=== PATIENT | female | born 1990 | race Caucasian/White ===

== ENCOUNTER 2018-09-27 09:00 | Outpatient (RCR) | payer MEDICAID, SELFPAY ==
--- NOTE | 2018-09-27 11:10 | BH.SGPN.GN ---
Behaviors/Verbalizations/Mental Status: [Client alert and oriented, casually dressed and groomed. Eye contact good. Motor activity appropriate. Speech within normal limits. Affect congruent, mood dysthymic. Thoughts linear, logical, no signs of hallucinations or delusions. ] Client Response/Progress/Benefit: [Client responded well to session, mostly attentive and somewhat engaged during small group session, though struggling with focus throughout. Group discussed the mental health benefits of recognizing strengths which included; improved self-esteem, better relationships, and being able to better problem solve, as well as willingness to ask for help. Group identified the barriers that have prevented them from acknowledging their strengths and successes. These barriers included; negative thoughts, feeling like a burden, negative outlook, lack of awareness of strengths. Group identified strategies to overcome barriers that prevent them from seeing strengths. These strategies included; keeping track of progress, practicing using affirmations, and reaching out to supports to challenge perspective when needed. Client able to identify personal strengths she possesses which included; intelligence, creativity, being a good listener, and caring for others. Appeared to benefit from recognizing personal strengths and identifying strategies to overcome barriers. Will continue IOP tx to improve mood stability, further increase healthy coping skills, and prevent decompensation. ] Narrative Note: []
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
--- NOTE | 2018-09-29 09:00 | BH.SGPN.GN ---
Behaviors/Verbalizations/Mental Status: []Client alert and oriented, disheveled appearance. Eye contact fair. Motor activity slowed. Speech within normal limits. Affect flat, mood dysthymic . Thoughts linear, logical, no signs of hallucinations or delusions. Reviewed client?s symptom tracker. Reports 1/5 for thoughts of suicide and 0/5 for risk, plan, or intent as of 09/29/18. Therapist checked in with client and client reports this is her baseline and denies any active suicidal ideations. Client Response/Progress/Benefit: []Client responded somewhat well to session, withdrawn while peers shared, but willing to share during her check-in. Client reports feeling ?not fully alert? today. Client stated she continues to feel in a ?todd area? or ?funk? which client describes as ?there but not really there.?? Client reported she has been avoiding things including her outpatient counseling appointment yesterday and class. Client reports feeling tired and lacks motivation to follow through with things that may help her mental health. Client received supportive feedback from peers. Client reported that she does not have ?a lot of wins? today, but client recognized that making it to IOP today was a positive. Appeared to benefit from socializing today instead of isolating at home. Limited progress to document as client continues to report daily symptoms that impact functioning.?
--- NOTE | 2018-09-29 10:04 | BH.SGPN.GN ---
Behaviors/Verbalizations/Mental Status: [Client alert and oriented, casually dressed and appropriately groomed. Eye contact good. Motor activity appropriate. Speech within normal limits. Affect congruent, mood dysthymic. Thoughts linear, logical, no signs of hallucinations or delusions. ] Client Response/Progress/Benefit: [Client was an active participant in group activity and provided some input to discussion when prompted. He connected with the topic of obstacles and solutions and worked with group to identify common internal and external barriers that could prevent progress towards desired reality. Client discussed with the group impact of focusing on external barriers and not addressing internal can continue to reinforce unhealthy coping and further prevent progress. Able to identify her own internal barriers preventing pt from reaching desired reality which included: not wanting to feel like a burden, minimizing mental health sx, isolation, and denial. Benefited from group as client was able to identify impact of internal barriers on current mental health state and ability to make progress. Will continue IOP to prevent decompensation and improve self-esteem, as well as improve mood stability.] Narrative Note: []
--- NOTE | 2018-09-30 09:06 | BH.SGPN.GN ---
Behaviors/Verbalizations/Mental Status: []Client alert and oriented, casually dressed and groomed. Eye contact fair. Motor activity appropriate. Speech within normal limits. Affect flat, mood anxious. Thoughts linear, logical, no signs of hallucinations or delusions. Reviewed client?s symptom tracker. Client has 1/5 for thoughts of suicide and 0/5 for plan and intent as of 09/30/18. Client to meet with individual therapist today. Will further assess suicidality. Client Response/Progress/Benefit: []Client responded somewhat well to session, coloring and appearing distracted, but sharing during her check-in time. Client reports feeling ?stressed? today due to ongoing feelings of ?being in a todd fog.? Client shared she did not go to her counseling appointment yesterday because she was too tired. Client reported she is supposed to work today, but she feels anxious about going. Client able to recognize coping skills that could help her get through work such as deep breathing and reminding herself that ?it won?t be that bad, I?m just cleaning.? Client?s mental health win today was that she made it to group today as client wanted to stay home and isolate. Appeared to benefit from connecting with peers instead of isolating which could reinforce depression. Limited progress at this time as client reports lack of motivation and application of coping skills. Will continue tx to prevent further decompensation and increase us of healthy coping skills.
--- NOTE | 2018-09-30 10:15 | BH.SGPN.GN ---
Behaviors/Verbalizations/Mental Status: []Client alert and oriented, neatly dressed and groomed. Eye contact fair. Motor activity appropriate. Speech within normal limits. Affect flat, mood dysthymic. Thoughts linear, logical, no signs of hallucinations or delusions. Client Response/Progress/Benefit: []Client responded well to session, mostly a passive participant, but providing occasional input. Client indicated connecting with the topic of cognitive distortions. Client agreed with group that negative thoughts impact one?s emotions, behaviors, and increase mental health symptoms. Client reported distortions can cause guilt and make depression worse. Client did well to work with the group on defining the various types of cognitive distortions and their impact on mental health. Client reported connecting with distortions of mental filtering, disqualifying the positives, over-generalizing, and ?shoulds and musts.? Client reported ?I will filter out all the positives and only hear the bad things.? Appeared to benefit from increasing awareness of cognitive distortions and how they can impact emotions and behaviors. Client continues to struggle with depressive symptoms that impact her daily functioning. Will continue IOP to prevent decompensation, maintain safety, and promote application of healthy coping skills.
--- NOTE | 2018-09-30 14:57 | BH.MDN_ITS ---
Multi-Disciplinary Note - Note 60-min Individual Time Started:: 11:40 Date: 09/30/18 Purpose of session/treatment goals addressed:: The purpose of this session was to build rapport, address current symptoms and stressors, and assess for risk. Another goal was to use strengths perspective and complete a safety plan. Eye Contact:: Fair Motor Activity:: Slowed Appearance:: Neat Speech:: Other - slow Mood:: Anxious, Dysthymic Affect:: Flat, Other - tearful Thoughts:: Linear, Logical, No evidence of hallucinations/delusions noted Staff Interventions:: Therapist used active listening and open-ended questions to gather information on client's current stressors, symptoms, and triggers. Therapist used strengths perspective to reinforce resilience and help client identify positive coping skills and supports. Therapist gently challenged distorted thoughts. Therapist used a safety plan worksheet and helped client complete it. Therapist assessed for risk and client contracted for safety. Therapist offered a family session, which client declined at this time. Therapist encouraged client to reach out to her friend this weekend. Client Response:: Client responded well to session, open to meeting with therapist. Client was tearful throughout and shared she has been feeling physically and mentally exhausted. Client acknowledges that her recent overdose is a contributor to her fatigue as her body is still getting rid of the Prozac. Client shared she often feels like no one cares and recognizes that most of her thoughts right now are distorted. Client reports belief her parents are tired of dealing with her mental health and shared her friends no longer want to spend time around her. Client identified one friend from [place], who client continues to be close with. Client somewhat receptive to gentle thought chall enging. Client shared some of what brought her to IOP included major stressors with her biological family, school, adoptive family, and transitioning to life in [place]. Client receptive to creating a safety plan. Client's safety plan included warning signs such as shutting down, anger, mean mouthed, and not caring. Client's coping skills included coloring, going outside, deep breathing, and reaching out to her best friend. After thought challenging from therapist, client reported willingness to reach out to her friend today. Client has to work tonight which is an additional stressor. Client encouraged to communicate with her bosses and parents about her mental health and support needs. Risks/Concerns:: Client denies any current active suicidal ideations or plan, bu t reports passive suicidal ideations which she described as popup adds. Client reports these thoughts are controllable and she has no intent to act on these thoughts as of 09/30/18. Client reports I want to live, it wasn't my time to go. Client's home is safe and per client's report her parents are keeping her medications. Client reports ability to maintain safety and was willing to go to the ER should she feel worse. Resources provided for crisis hotlines and completed safety plan with therapist. Progress Toward Goals/Plan:: Client's first week in IOP, no progress to document at this time. Client shared she continues to feel in a todd area, fatigued, and depressed. Client continues to experience the physiological effects of her recent overdose which is exacerbating her fatigue and inability to concentrate. Client endorses passive suicidal ideations, hopelessness, crying spells, negative thoughts, anhedonia, and anxiety. Therapist encouraged a family sessi on, which client declined at this time. Client will continue IOP to prevent further decompensation, maintain safety, and improve mood stability. Client willing to follow her safety plan and reports ability to maintain safety. Time Stopped:: 12:35
--- NOTE | 2018-10-04 11:17 | BH.SGPN.GN ---
Behaviors/Verbalizations/Mental Status: []Client alert and oriented, neatly dressed and groomed. Eye contact fair. Motor activity appropriate. Speech within normal limits. Affect congruent, mood euthymic. Thoughts linear, logical, no signs of hallucinations or delusions. Client Response/Progress/Benefit: []Client responded well to session, contributing to discussion. Client appeared to connect with the activity from second group and helped the group identify benefits of having a strong foundation of internal and external coping skills. Client helped the group discuss the different categories of coping skills and provided examples. Client shared because her parents are therapists, she knows a lot of coping skills. However, client reported it is hard for her to apply thought challenging. Client created a coping skills ?menu? for the five categories of coping skills. Client selected petting her dog, listening to music, organizing, deep breathing, face masks, and looking at the evidence against her thoughts as her coping skills to try. Client appeared to benefit from increasing her repertoire of healthy coping skills. Client?s second week in IOP and her affect has improved since last week. Will continue tx to prevent decompensation, maintain safety, and improve daily functioning.
--- NOTE | 2018-10-04 14:09 | BH.MDN ---
Multi-Disciplinary Note - Note 45-min Individual Time Started:: 09:13 Date: 10/04/18 Purpose of session/treatment goals addressed:: The purpose of this session was to gather information on client's current stressors, symptoms, and treatment goals. Another goal was to build rapport and schedule a family session. Eye Contact:: Good Motor Activity:: Appropriate Appearance:: Neat Speech:: Appropriate Mood:: Euthymic Affect:: Congruent - smiling and laughing throughout session. Thoughts:: Linear, Logical, No evidence of hallucinations/delusions noted Staff Interventions:: Therapist used active listening and open-ended questions to explore client's current stressors, symptoms, and treatment goals. Therapist used strengths perspective to build rapport and help client identify personal resilience factors. Therapist assessed risk and client contracted for safety. Therapist helped client establish a date for a family session. Client Response:: Client responded well to session, open to meeting with therapist. Client shared she feels more like herself this week. Client stated she was able to get some sleep over the weekend which was helpful. Client also talked with her boss at [employer] and shared the conversation went well. Client reported it made me realize that people do actually care about me being here. Client willing to have a family session and tentatively scheduled one for next week. Client reported her goals for the family session is to feel heard and improve communication with her parents about independence. Client provided psychosocial information to therapist and identified her treatment goals. Client's goals included improving her functioning, so she can finish this semester, move out on her own, and obtain a full-time job. Client would also like to improve emotional regulation, increase healthy supports, and challenge negative thoughts. Client able to acknowledge use of distortions and identified herself as being emotionally spongey which can cause client to have difficulty regulating emotions and lead to impulsive decisions. Client receptive to reaching out to her friend [place] and following up with her parents about the family session. Risks/Concerns:: Client reports passive thoughts of that are chronic. Client denies any active suicidal ideations, plan, or intent as of 10/04/18. Client reports I'm starting to feel like myself again. Future oriented and reporting feeling closer with supports. Client reports ability to maintain safety today. Progress Toward Goals/Plan:: Client?s second week in [facility], progress reported in improved mood this week. Client shared she feels ?more like I?m getting back to myself.? Client reports an improved outlook and shared belief that ?people really do care about me.? Client was future oriented throughout session and receptive to having a family session which demonstrates progress. Client continues to endorse passive suicidal ideations, irritability, fatigue, negative thoughts, anhedonia, isolation, and anxiety about the future. Client will continue IOP to prevent decompensation, maintain safety, and improve mood stability. Time Stopped:: 10:03
--- NOTE | 2018-10-04 14:10 | BH.MTP_ITS ---
[facility] Treatment Plan - Patient Information Program Physician:: Che Marquez Primary Therapist:: Adelita Medley - Psychiatric Diagnoses Psychiatric Diagnoses:: Major depressive disorder recurrent severe without psychosis, generalized anxiety disorder, posttraumatic stress disorder Diagnosis Code(s):: F 33.2 - Estimated LOS Estimated LOS (in weeks):: 6 Problem/Goal #1 - Problem/Goal #1 Stated Goal:: Client will reduce depressive symptoms, suicidal thoughts, and lack of motivation due major depressive disorder. Description of Barriers: Client reports history of trauma that continues to impact client. Client reports crisis behaviors including shutting down, wanting to run, suicidal ideations, and avoidance which causes additional issues for client. Client reports a good relationship with her adoptive parents, but she shared feeling like I'm walking on eggshells right now. Client reports her youngest adoptive brother is a trigger for her. Client identifies current stressors including; financial stress, trying to figure out her career, lack of social support, moving back to [place], and family stress. Client reports awareness of warning signs, triggers, and healthy coping skills, but per her report, she chooses not to ignore these at times. Client endorses numerous distorted thoughts that reinforce mental health symptoms and cause interpersonal relationship issues. Functional Impact: Client is a 27-year-old female with a history of depression, PTSD, and anxiety. Client was referred to [facility] by a family member following a recent suicide attempt on 09/22/18. Client ingested 1-1/2 bottles of her prescription pills on a family vacation in [place] and was hospitalized. Client reported multiple triggers to her suicide attempt including issues with her adoptive brother and reminders of past family trauma. Client was adopted and reported her biological parents reconnected a couple of months ago. Client currently endorses a depressed mood, lack of energy, lack of concentration, passive wishes of , lack of motivation, avoidance behaviors, emotional dysregulation, irritability and erratic sleep and appetite. Client reports being unable to function at school and shared she is currently failing her classes. Client's symptoms are interfering with her social, occupation, and familial functioning. Goal Relevant Strengths/Supports: Client presents as a kind, intelligent, and resilient woman who has overcome numerous hardships in life. Client has shown ability to bounce back from adversity in the past which presents as a protective factor to her current treatment. Client has strong family support from her adoptive parents. Client has a good friend from [place] who often reaches out and checks in with client. 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 Client has been in IOP treatment before and reported it was helpful. Client has good insight to her warning signs, triggers, and has knowledge of coping skills. - Objectives Objective #1 Stated Objective: Client will identify and replace 2-3 negative thinking patterns that reinforce isolation, suicidal ideation, and negative self-talk. Interventions: Through groups and individual therapy, client will be provided with education on cognitive distortions, mistaken beliefs, and identifying and combating negative self-talk. Therapist will assist client in recognizing triggers for increased suicidal and depressive thought patterns. Therapist will help client explore connection between thoughts, feelings, and actions and help client reframe depressive thought patterns. Therapist will help client gain awareness of why client has developed negative thoughts and core beliefs of self. Discharge Criteria: Client will have accomplished this goal when client can identify and replace at least 2 negative thinking patterns with more realistic, positive statements. Target Date: 11/08/18 Review Date: 10/27/18 Status: open Objective #2 Stated Objective: Client will learn and utilize 2-3 healthy coping strategies to better manage depressive and mood symptoms as shown by reduced DSM-5 scores. Interventions: Through group and individual sessions, therapist will help client identify triggers and warning signs of depression and emotional dysregulation including emotional, physical, and behavioral changes. Therapist will teach client various coping skills to manage her symptoms and give client tangible resources to use to regulate emotions. Therapist will use cognitive restructuring techniques and help client gain awareness of negative thoughts that reinforce depressive cycles. Therapist will help client incorporate behavioral activation, opposite action, motivational interviewing, and assist client in setting SMART goals. Discharge Criteria: Client will have met this goal when she can report learning and using at least 2 coping skills to manage depressive symptoms and show a reduction in DSM-5 symptoms. Target Date: 11/08/18 Review Date: 10/27/18 Status: open Problem/Goal #2 - Problem/Goal #2 Stated Goal:: Client will increase emotional regulation and to better manage anxiety and trauma triggers. Description of Barriers: Client reports history of trauma that continues to impact client. Client reports crisis behaviors including shutting down, wanting to run, suicidal ideations, and avoidance which causes additional issues for client. Client reports a good relationship with her adoptive parents, but she shared feeling like I'm walking on eggshells right now. Client reports her youngest adoptive brother is a trigger for her. Client identifies current stressors including; financial stress, trying to figure out her career, lack of social support, moving back to [place], and family stress. Client reports awareness of warning signs, triggers, and healthy coping skills, but per her report, she chooses not to ignore these at times. Client endorses numerous distorted thoughts that reinforce mental health symptoms and cause interpersonal relationship issues. Functional Impact: Client is a 27-year-old female with a history of depression, PTSD, and anxiety. Client was referred to [facility] by a family member following a recent suicide attempt on 09/22/18. Client ingested 1-1/2 bottles of her prescription pills on a family vacation in [place] and was hospitalized. Client reported multiple triggers to her suicide attempt including issues with her adoptive brother and reminders of past family trauma. Client was adopted and reported her biological parents reconnected a couple of months ago. Client currently endorses a depressed mood, lack of energy, lack of concentration, passive wishes of , lack of motivation, avoidance behaviors, emotional dysregulation, irritability and erratic sleep and appetite. Client reports being unable to function at school and shared she is currently failing her classes. Client's symptoms are interfering with her social, occupation, and familial functioning. Goal Relevant Strengths/Supports: Client presents as a kind, intelligent, and resilient woman who has overcome numerous hardships in life. Client has shown ability to bounce back from adversity in the past which presents as a protective factor to her current treatment. Client has strong family support from her adoptive parents. Client has a good friend from [place] who often reaches out and checks in with client. 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 Client has been in [facility] treatment before and reported it was helpful. Client has good insight to her warning signs, triggers, and has knowledge of coping skills. - Objectives Objective #1 Stated Objective: Client will be able to explain common stress reactions and symptoms related to trauma and learn 2-3 coping skills to manage symptoms. Interventions: Therapist will provide education on trauma and explain impact trauma can have on development and emotional regulation. Will help client explore personal symptoms and warning signs of stress and trauma as well as her crisis behaviors. Therapist will teach client coping skills to improve emotional regulation, mindfulness, and distress tolerance. Therapist will help client get connected with additional trauma-focused services, should client agree. Therapist will incorporate client's supports into the treatment process to help gain awareness of crisis behaviors and set goals. Discharge Criteria: Client will have met this objective when can identify common stress reactions to trauma and report using at least 2 healthy coping skills to manage symptoms. Target Date: 11/08/18 Review Date: 10/27/18 Status: open Objective #2 Stated Objective: Client will identify 2-3 anxiety and emotional dysregulation triggers and 2 healthy coping skills to manage symptoms as shown by decreased DSM-5 cross-cutting score for anxiety. Interventions: Therapist will help client increase awareness of anxiety and emotional dysregulation triggers and educate client on ways emotions impact overall health. Therapist will teach client various heathy coping skills to manage triggers and prevent further escalation of symptoms. Therapist will assist client in identifying warning signs, triggers, and maladaptive coping skills. Therapist will utilize opposite action and other DBT techniques to promote emotional regulation. Therapist will discuss the benefit of self-care and self-compassion. Discharge Criteria: Client will have accomplished this goal when can report at least 2 triggers for anxiety and state using 2 healthy strategies to manage symptoms. Additionally, client will have accomplished this goal when her DSM-5 cross-cutting scores show a decrease in anxiety. Target Date: 11/08/18 Review Date: 10/27/18 Status: open
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
--- NOTE | 2018-10-06 09:17 | BH.COMM ---
Communication Note - Communication with Client Communication Note: Therapist called client as client no called/no showed for her scheduled IOP sessions today. Client answered and shared she meant to call, but she forgot. Client cancelled today stating I decided to spend the day with my family. Client reports plan to attend IOP tomorrow 10/07/18.
--- NOTE | 2018-10-07 09:51 | BH.NA_ITS ---
Physical Data - Vital Signs Pulse Rate: 84 Respiratory Rate: 14 Blood Pressure: 106/70 - Height/Weight Height: 1.66 m Weight:: 74.843 kg Weight in Pounds: 165.0 lbs Current Medication Compliance - Medication Compliance Do you take your medication as prescribed?: Yes Do you need assistance with taking medication?: No Have you had side effects from medication?: No Nutritional History - Appetite Nutritional Instructions:: If client shows signs of a swallowing problem, weight change of 10 pounds or more in the last month, or is on a diabetic diet, the physician will review and request a dietitian consult, as appropriate. All unintentional weight loss will be referred to the physician for decision on need for dietitian consult. Describe your appetite:: Fair Have you noticed a change in your eating habits lately?: No Functional Assessment - Sleep Pattern Describe any problems with sleeping: Client notes intermittent difficulty with falling and staying asleep, which she relates more to comfort then rumination or anxiety. - Activities Motor Activity:: Functional, Hyperactivity Comments:: constant R leg bouncing throughout interview Sensory/Communication Assess - Dental Problems Do you have any dental problems?: None - Vision Problems Do you have any vision problems?: None - Hearing Problems Do you have any hearing problems?: Adequate - Communication Problems Do you have difficulty understanding what people are saying?: No Do you have trouble putting your thoughts into words or expressing what you want to say?: No Do people ever have trouble understanding what you say?: No What is your primary language?: Malay Learning Assessment - Education What is your level of education?: Some College - Learning Barriers Learning Barriers:: Ready to learn Medical Problems/History - Pain Assessment Do you have acute or chronic pain?: No - Female Reproductive Do you think you may be ?: No Number of pregnancies:: 0 Number of children:: 0 Have you reached menopause?: No Do you have any history of breast disease?: No Surgical History - Surgical History Have you had any surgeries? If so, list type and date:: No Substance Abuse - Substance Abuse Please describe substance abuse in the last 30 days:: Client denies ETOH, tobacco, and illicit substance use in the past month. Mental Status Summary - Mental Status Significant Findings/Observations on Appearance and Mood:: Doris is A&Ox4, cooperative with interview, hyperactive in chair with leg bouncing. Good eye contact. Steady gait. Speech is clear and of normal rate and volume. Moderate anhedonia. Mood congruent affect. Normal process. No symptoms of delusions. Notes that she has had visual and auditory hallucinations before, but denies any currently. She denies SI and HI at present; however, she does note that it only takes only little thing to set me of and make me feel suicidal. Suicide Assessment - Suicidal Ideation Are you currently or have you been suicidal in the past?: Yes Suicidal Intentional Rating Scale (SIRS): Suicidal thoughts (past) Physician Notification: If Active suicidal thoughts/Will not contract for safety is checked, contact physician and document in the Physician Notification section below. Assault History/Potential - History of Assault Do you have a history of assaulting someone?: No Physician Notification: If yes, notify physician and document notification date and time below. Past Psychiatric History - MH Treatment Hx ECT Therapy Details:: N/A Fall Risk Assessment - Age Age: Less than 60 - Mental Status Mental Status: Willing & able to ask for assistance when needed - Physical Status Physical Status: No problems - Impairments Impairments: None - Elimination Elimination: Continent AND independent - Gait or Balance Gait or Balance: Walks independently - Hx of Falls History of falls in the past 6 months: No known history - Medications/Substances Medications/substances used within the past 24 hours or ordered to administer: None of the medications/substances list above - Total Score Total Points:: 0 Physician Notification - Physician Notification Physician Notified: Che Marquez Method of Notification: Face to Face Comments: treatment planning discussion RN Summary of Impressions - Impressions Recommendations: Include psychiatric and medical issues, treatment planning recommendations, and discharge planning needs. Impressions: Psychiatric Issues: MDD, ASHLEY, PTSD Impression: Medical Issues: N/A Impression: General Medical Conditions: N/A - Level of Care How do the client's current symptoms and functional deficits support need for this level of care?: Client describes a significant decompensation in her mental health for several months, which culminated in her overdosing on Prozac. Client was in an inpatient psychiatric facility in [place] following the overdose from 09/22-09/24. Minnie endorses several recent stressors including a recent move from [place] to [place] and reconnecting with biological parents. Client notes that she has a younger brother that is on the autism spectrum and his behaviors are a trigger for her. She endorses intermittent SI without plan or intent, isolative behaviors, and hopelessness.
--- NOTE | 2018-10-07 10:08 | BH.SGPN.GN ---
Behaviors/Verbalizations/Mental Status: [Pt alert and oriented, casual dress, hygiene tended to. Eye contact good. Motor activity appropriate. Speech within normal limits. Affect congruent, mood depressed. Thoughts linear, logical, no signs of hallucinations or delusions.] Client Response/Progress/Benefit: [Pt receptive to session, provided input and remained an active listener throughout discussion on stress. Indicated connecting with discussion on how small stressors can lead to burnout if ignored. Able to brainstorm with the group positive and negative aspects of stress on physical and mental health. Pt participated in identifying current stressors impacting mental health. Pt's current stressors include: relationships, occupation, mental health, finances, loneliness, and living environment. Appeared to benefit from gaining awareness of own current stressors and learning about the impact stress has on overall wellbeing. Progress noted in improved ability to identify impact of not managing stressors is impacting mental health and wellbeing. Recommended continued IOP tx to increase utilization of healthy coping skills, improve mood stability, and prevent decompensation.] Narrative Note: []
--- NOTE | 2018-10-07 11:08 | BH.SGPN.GN ---
Behaviors/Verbalizations/Mental Status: []Client alert and oriented, neatly dressed and groomed. Eye contact good. Motor activity appropriate. Speech within normal limits. Affect full, mood euthymic. Thoughts linear, logical, no signs of hallucinations or delusions. Client Response/Progress/Benefit: []Client responded well to session, providing to discussion and participating in activity. Client further processed her stress jar shared that when she does not manage stress she gets ?mean mouthed,? apathetic, and shuts down. Client agreed with peers that it is helpful to focus on stressors in one?s control to reduce stress and anxiety. Client participated in the group activity. The group quickly became frustrated and client recognized the group often turned to giving up or quick fixes when things got difficult. The group was able to connect this to how they typically respond to stress in their daily lives. Client identified strategies from the activity that helped the group successfully manage stress such as; slowing down, trying new ideas, using their resources, being persistent, and focusing on one thing at a time. Client helped the group discuss the four A?s of stress management. Client reported she wants to work on altering her response to stress by challenging negative thoughts. Will continue tx to promote safety, increase emotional regulation, and prevent decompensation.
[2018-10-07 15:06] VITALS: BP 106/70; PULSE 84; RESP 14
--- NOTE | 2018-10-11 09:10 | BH.SGPN.GN ---
Behaviors/Verbalizations/Mental Status: [] Eye contact is poor. Motor activity is appropriate. Appearance is causal. Speech is Appropriate. Mood is depressed/irritable. Affect is flat. Thoughts are linear and logical. No evidence of psychosis. Reviewed daily check in sheet and no reports of suicidal ideations or intent. Client Response/Progress/Benefit: [] Pt was coloring in her binder for entire group session. Looking down. Only spoke when prompted. Appeared angry. Stated that she learned that she officially failed her college courses, however she expected this. Was very focused on moving out of [place] to [place]. Reported that she wants to get several jobs and plans to move in February. Positives reported were that her father and little brother were out of town. Also notes that she has found a support group for adopted individuals which she believes will be beneficial. Talked about fear of failure and some perfectionistic qualities stating she gets upset if everything doesn't go according to plan which may be why she is currently stressed about her life. Group provided feedback to challenge this thought. Limited progress noted. Benefited from group support, feedback, and encouragement. Will continue in [facility] to maintain safety, prevent decompensation, and improve daily functioning. Narrative Note: []
--- NOTE | 2018-10-11 10:10 | BH.SGPN.GN ---
Behaviors/Verbalizations/Mental Status: []Client alert and oriented, neatly dressed and groomed. Eye contact fair. Motor activity appropriate. Speech within normal limits. Affect congruent, mood irritable. Thoughts linear, logical, no signs of hallucinations or delusions. Client Response/Progress/Benefit: []Client responded mostly well to session, coloring throughout, but contributing at times. Client connected with the quote and agreed that mental health growth does not just happen by chance. Client shared the positive and negative forces in life could be many things including people. Client, along with other group members, provided input and suggestions when identifying what internal/external forces are and the impact that these forces have on their mental health. Examples of negative forces included; high expectations, negative thoughts, self-doubt, unmanaged mental health symptoms, and lack of motivation. Client identified reaching out to supports, using coping skills, taking medication, and self-care as positive forces. The group started, but they did not finish the activity. Benefited from increased awareness of how different positive and negative forces impact mental health. Progress shown as client did not report suicidal thoughts today. Client continues to struggle with negative thinking that reinforces depression and low self-esteem. Will continue tx to prevent decompensation, maintain safety, and improve emotional regulation.
--- NOTE | 2018-10-11 14:06 | BH.MDN_ITS ---
Multi-Disciplinary Note - Note 60-min Individual Time Started:: 11:26 Date: 10/11/18 Purpose of session/treatment goals addressed:: The purpose of this session was to address current symptoms, stressors, triggers, and negative thoughts. Other topics included radical acceptance and thought challenging. Eye Contact:: Fair Motor Activity:: Appropriate Appearance:: Neat Speech:: Soft Mood:: Dysthymic Affect:: Flat - tearful Thoughts:: Linear, Logical, No evidence of hallucinations/delusions noted Staff Interventions:: Therapist used active listening and open-ended questions to explore client's symptoms, triggers, and stressors. Therapist used cognitive restructuring techniques to help client catch and challenge distortions that reinforce depression. Therapist used dialectical statements to help client see different perspectives and challenge negative self-talk. Therapist introduced radical acceptance and provided psychoeducation. Therapist gave client homework to challenge two negative thoughts a day. Client Response:: Client entered session alert and oriented, but quickly became tearful. Client shared belief that she has been pretending for the last two weeks and she has been feeling depressed. Client continues to report interpersonal relationship issues with her family. Client willing to have a family session this Wednesday. Client was using self-depreciating and distorted thinking during session sharing ?I?m not going to be able to move to [place]? and ?my family thinks it?s unrealistic.? Receptive to therapist's gentle challenging. Client recognizes that her negative thinking reinforces depression and interpersonal relationship issues. Client stated she often perceives her mother's facial expressions as negative towards client. Client and therapist discussed radical acceptance. Client admits that she struggles with changing her perspective and taking action on her goals. As a result, client reported I've stayed miserable more times than I like to admit. Client somewhat receptive to dialectical thinking and was able to see the costs of not challenging her thinking. Client receptive to doing thought challenging for homework. Risks/Concerns:: Client denied any active suicidal ideations, plan, or intent as of 10/11/18. Client reported having passive suicidal thoughts earlier today, but client denies any now. Client reports ability to maintain safety and was future oriented. Progress Toward Goals/Plan:: Client appeared to be making strides towards treatment goals as shown by her improved affect and reduced suicidal ideations. However, during session client reported a regression in depressive symptoms. Client shared I feel like I've just been pretending. Client stated she has been trying to avoid her dark time feelings, but client recognizes this only intensifies her symptoms. Client reports she knows coping skills, but she states she has not been using them. Will continue IOP to prevent further decompensation and improve use of healthy coping skills. Time Stopped:: 13:20
--- NOTE | 2018-10-13 09:10 | BH.SGPN.GN ---
Behaviors/Verbalizations/Mental Status: [] Eye contact is poor. Motor activity is appropriate. Appearance is neat. Speech is Appropriate. Mood is depressed/irritable. Affect is angry. Thoughts are linear and logical. No evidence of psychosis. Reviewed daily check in sheet and patient reported 2/5 for suicidal ideations and 0/5 for intent. This has been baseline for patient since starting IOP. Was utilizing adult coloring sheet throughout the group which is normal for patient. Client Response/Progress/Benefit: [] Pt participated at times during the group session often responding to choices questions that were asked and interacting with peers. She declined to check in however group asked her some questions and she was able to verbalize some anger towards her current financial situation. States that she is upset about the financial costs to be independent today. She verbalized to peers that she has applied for a 3rd job and answered others questions. Irritable and angry however socializing with peers. 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 Group was empathetic and encouraging. Continues to have future plans to move to [place] however is very impatient. No progress noted. Benefited from group support and encouragement. Will continue in IOP to prevent decompensation and stabilize mood. Narrative Note: []
--- NOTE | 2018-10-13 10:26 | BH.COMM ---
Communication Note - Communication with Client Communication Note: Client left after first group today and appeared agitated. [facility] staff attempted to meet with client, but client left too quickly. This therapist called client and checked in with client over the phone. Per client's report, client was feeling suffocated in group and shared it was making her feel more stressed. Client reported belief that leaving group and doing something productive about her stress would be more beneficial. Therapist assessed for safety as client had indicated suicidal ideations on her daily symptom tracker. Client denied any active suicidal ideations, plan, or intent as of 10/13/18. Client reported ability to maintain safety and stated she plans to be at [facility] tomorrow for group and family sessions. ROSEMARIE signed with mother, this therapist called mother to keep family aware of progress and current situation.
--- NOTE | 2018-10-14 09:04 | BH.SGPN.GN ---
Behaviors/Verbalizations/Mental Status: []Client alert and oriented, neatly dressed and groomed. Eye contact fair-coloring most of group. Motor activity appropriate. Speech within normal limits. Affect constricted, mood anxious. Thoughts linear, logical, no signs of hallucinations or delusions. Reviewed client?s symptom tracker, no risk for suicidal ideation, plan, or intent as of 10/14/18. Client Response/Progress/Benefit: []Client entered session alert and oriented. Quiet, but participating when prompted. Client reports feeling ?anxious? today but shared also shared feeling ?like I?m finally coming to terms with what?s going on.? Client identified her mental health positive today as applying for and getting a job at [employer]. Client shared this job is both a positive and a stressor. Client reported this job is helping her move closer to her goals, but she is stressed about the time commitment. Client stated she is not sure yet how she will balance her other jobs with this new job. Client receptive to feedback from peers and reported feeling optimistic. Client appeared to benefit from connecting with peers and reflecting on steps she?s taking to accomplish personal goals. Progress noted in reduced suicidal ideation and improved outlook, but client continues to struggle with consistent mood stability. Will continue IOP tx to prevent decompensation and improve emotional regulation.
--- NOTE | 2018-10-14 10:12 | BH.SGPN.GN ---
Behaviors/Verbalizations/Mental Status: []Client alert and oriented, neatly dressed and groomed. Eye contact good. Motor activity appropriate. Speech within normal limits. Affect congruent, mood euthymic. Thoughts linear, logical, no signs of hallucinations or delusions. Client Response/Progress/Benefit: []Client participated in group discussion and worksheet activity. Worked together with the group to define a crisis and discuss examples of crisis situations. Client helped the group explore how coping with crisis in unhealthy ways can lead to a mental health crisis. Client shared she has used avoidance and running to cope with crisis in the past, ?but I realize that doesn?t work.? Client reported she is now trying not to avoid her problems. Client stated one can prevent external crises from turning into internal crises by recognizing early warning signs and using coping skills. Group identified warning signs one could have which included; drinking, distractions, avoidance, sleeping, and crying. Client completed her own personal warning signs worksheet. Client identified her top three crisis warning signs to be difficulty concentrating, rapid mood changes, and apathy. Benefited from group by increasing awareness of crisis and personal warning signs. Progress noted as client reports increased self-awareness of how she can help or hinder her progress. Will continue IOP to promote mood stability and emotional regulation.?
--- NOTE | 2018-10-14 14:26 | BH.MDN ---
Multi-Disciplinary Note - Note Family Time Started:: 11:10 Date: 10/14/18 Purpose of session/treatment goals addressed:: The purpose of this session was to engage client's mother in client's treatment by addressing barriers to follow through, increasing communication, and discussing boundaries. Another purpose was to set a goal as a family to promote ongoing progress and independence. Eye Contact:: Good Motor Activity:: Appropriate Appearance:: Neat Speech:: Appropriate Mood:: Euthymic, Anxious Affect:: Congruent Thoughts:: Linear, Logical, No evidence of hallucinations/delusions noted Staff Interventions:: Therapist used open-ended questions and active listening to gather information on client's, and her mother?s, expectations for the session. Therapist encouraged open communication and provided clarification when necessary to help client challenge distortions in the moment. Therapist helped client explore the impact trauma has had on client?s ability to regulate emotions recently. Therapist addressed barriers to treatment and problem-solved strategies with client and her mother. Therapist gently challenged client on her distortions and lack of follow through. Therapist encouraged opposite action, emotional regulation, and strategies to improve independence. Therapist gave client homework and assisted client in goal setting to improve follow through. Client Response:: Client and client's mother responded well to session, open to meeting with therapist. Client's mother was able to provide insight to client's behaviors, emotions, and thoughts outside of group. Client was able to recognize the negative consequences of her reactions between client and her family. Client shared she and her mother had a good conversation last night about how to better manage client's mental health. Client expressed they talked about setting boundaries, open communication, and more appropriate reactions to emotions. Client acknowledged that since her suicide attempt and being trauma-triggered, her emotional regulation has regressed. Client stated, it was like I was fighting within myself, one part of me wanted to get better and the other part didn't care. Client's mother agreed with this and was able to provide additional information. Client and mother both agreed that client is slowly improving and can benefit from using her awareness to prevent decompensation. Client's mother shared concerns about client's current supports, lack of motivation, and ability to be independent. Therapist helped client challenge negative thoughts in the moment. Client willing to work on taking steps to improve independence and gain trust. Client able to acknowledge supports and coping skills that provide short term relief but worsen symptoms long-term. Client, mother, and therapist discussed the benefits of opposite action, goal setting, and boundaries. Client and mother reported client's biggest barrier is lack of follow through. Will continue to work on overcoming lack of follow through in group and individual sessions. Risks/Concerns:: Client denies any suicidal ideations, plan, or intent as of 10/14/18. Future oriented throughout session. Progress Toward Goals/Plan:: Client appears to be making strides towards treatment goals as shown by her improved mood, acceptance, and engagement in therapy since last session. Client reports recognizing that she was engaging in avoidance behaviors that were hindering progress. Client willing to set goals with mom and continue working on improving communication and independence. Client continues to endorse mood dysregulation, irritability, and negative thinking. Client will continue IOP tx as her mood instability, inconsistent application of coping skills, and difficulty regulating emotions continues to impact her functioning. Time Stopped:: 12:30
--- NOTE | 2018-10-18 09:00 | BH.SGPN.GN ---
Behaviors/Verbalizations/Mental Status: [] Eye contact is good. Motor activity is appropriate. Appearance is casual. Speech is Appropriate. Mood is depressed/irritable. Affect is congruent. Thoughts are linear and logical. No evidence of psychosis. Reviewed daily check in sheet and no reports of suicidal ideations or intent. Client Response/Progress/Benefit: [] Pt was an active participant in group discussion. Shared that she spend some quality time with her mother over the weekend. Shared that this was positive and it helped to improve their relationship. She talked at length regarding a recent event where she trusted someone she met online which turned out poorly. Pt was honest with her supports regarding this event and did not attempt to hide it from her mother. She was proactive and managed the event as best she could. She talked about what she would have done differently and what she learned from the event. She believes that her mother was upset with her however again reports that she managed things and was honest. Looking forward to starting work this week as well. Overall improved mood this week. Progress noted. Participated in group discussion on anger mgmt skills, thoughts stopping, thought challenging, catastrophizing, and setting boundaries. Will continue in IOP to maintain safety, increase healthy coping skills, and prevent decompensation. Narrative Note: []
--- NOTE | 2018-10-18 11:15 | BH.SGPN.GN ---
Behaviors/Verbalizations/Mental Status: [Eye contact good. Motor activity is appropriate. Appearance is casual. Speech is appropriate rate and tone. Mood is dysthymic. Affect is congruent with mood. Thoughts are linear and logical. No evidence of psychosis. ] Client Response/Progress/Benefit: [Pt engaged throughout activity and discussion portions of group, providing increased input compared to previous groups. Pt indicated connecting with group topic of resilience and contributed several ideas to discussion on what influences resilience as well as the mental health benefits of being resilient. Pt shared that resilience helps to promote hope and aid in personal growth and development. She did well to work within the small group setting to discuss the factors in building Resilience and benefitted from reviewing strategies for developing and promoting a resilient lifestyle. Pt identified that if we ?Accept change as a part of living? we are less likely to remain ?stuck in the same loop? and decrease anxiety associated with change. Pt continues to make some progress in her ability to engage in group discussion and make connections between group topics and mental health management. Despite this increase insight, pt continues to struggle with follow-through in terms of utilizing the skills she has identified outside of treatment environment. Would benefit from continued IOP tx to prevent decompensation, continue to promote application of healthy skills, thought challenging, and emotion regulation. ] Narrative Note: []
--- NOTE | 2018-10-19 10:27 | BH.MDN_ITS ---
Multi-Disciplinary Note - Note 45-min Individual Time Started:: 08:15 Date: 10/19/18 Purpose of session/treatment goals addressed:: The purpose of this session was to address current symptoms, stressors, triggers, and negative thoughts. Another goal was to identify healthy coping skills to improve emotional regulation. Other topics included: dialectical thinking and opposite action. Eye Contact:: Good Motor Activity:: Appropriate Appearance:: Casual Speech:: Appropriate Mood:: Euthymic Affect:: Congruent Thoughts:: Linear, Logical, No evidence of hallucinations/delusions noted Staff Interventions:: Therapist used active listening and open-ended questions to explore client's symptoms, triggers, and stressors. Therapist used cognitive restructuring techniques and dialectical thinking to help client catch and reframe unhelpful thinking. Therapist explored different coping skills with client, helping client identify what has worked in the past as well as new skills to try. Therapist introduced opposite action to promote emotional regulation and reduce impulsive behaviors. Therapist gave client homework to practice body scanning. Client Response:: Client responded well to session, open to meeting with therapist. Client reported she is starting to feel like herself and shared waking up feeling alert and ready today. Client stated she continues to struggle with managing her mood and reacting on emotion, but client reported she see improvements. Client shared a few days ago she and her mother got into an argument and client had passive suicidal thoughts. Client stated she was able to engage in healthy distractions and talk myself out of it which resulted in her passive thoughts going away. Client stated she continues to have urges to run or shut down when faced with stressors. Client willing to practice opposite action and give herself time before acting on emotions. Client reflected on use of healthy coping skills since last visit including self-care and not engaging in impulsive urges to run. Client shared she wants to build a new amour of coping skills as client reports belief her old skills are less effective. Client identified some old coping skills that continue to work including deep bernice athing, body scanning, and asking herself what she needs. Client willing to practice asking herself what she needs through a body scan as homework. Therapist introduced dialectical thinking and client responded well. Client recognizes that her all or nothing thinking has led to mood dysregulation. Client willing to practice dialectical thinking and learn new methods of coping during future individual sessions. Risks/Concerns:: Client denies any active suicidal ideations, plan, or intent as of 10/19/18. Client is future oriented and reports looking forward to starting he r new job today. Continues to endorse impulsive behaviors and mood dysregulation at times. Client reports I don't want to and states ability to maintain safety. Progress Toward Goals/Plan:: Client appears to be making strides towards treatment goals as shown by her improved mood, futuristic thinking, and increased willingness to engage in treatment. Client reports feeling ?more like myself? and having increased motivation. Client has awareness of healthy coping skills as well as self-sabotaging behaviors that keep her stuck. Client willing to build her repertoire of healthy coping skills and practice opposite action. Client continues to endorse mood dysregulation, irritability, and negative thinking. Client continue to meet criteria for IOP level of care as her mood instability, inconsistent application of coping skills, and difficulty regulating emotions continues to impact her functioning and ability to function at her baseline. Time Stopped:: 10:05
== END 2018-10-19 23:59 ==
LOC: BHIOP 09:00
PROVIDERS: Family Provider Student in an Organized Health Care Education/Training Program; PCP Student in an Organized Health Care Education/Training Program; Referring Provider Psychiatry & Neurology Psychiatry; Visit Provider Psychiatry & Neurology Psychiatry
DX: F33.2 Major depressive disorder, recurrent severe without psychotic features (principal); F41.1 Generalized anxiety disorder; F43.10 Post-traumatic stress disorder, unspecified; Z79.899 Other long term (current) drug therapy; Z91.5 Personal history of self-harm
CPT/HCPCS: 99204; H0035; H2012; H2020; T1002; 90834; 90837; 90847; 90853

== ENCOUNTER 2018-10-25 09:00 | Outpatient (RCR) | payer MEDICAID, SELFPAY ==
[2018-10-20 01:09] VITALS: BP 106/70; PULSE 84; RESP 14
--- NOTE | 2018-10-25 09:03 | BH.SGPN.GN ---
Behaviors/Verbalizations/Mental Status: []Client alert and oriented, neatly dressed and groomed. Eye contact good. Motor activity appropriate. Speech within normal limits. Affect incongruent-smiling, but reporting feeling overwhelmed, mood anxious. Thoughts linear, logical, no signs of hallucinations or delusions. Reviewed client?s symptom tracker and client indicated 3/5 for thoughts of suicide. Client denied any plan, or intent as of 10/25/18. Therapist to have a session with client today and will follow up to assess risk. Client Response/Progress/Benefit: []Client responded somewhat well to session, appeared distracted as shown by coloring. Client reports feeling ?overwhelmed? today. Client stated her trigger for increased anxiety is ?just life.? Client reported being an adult is difficult and client is having a hard time balancing and affording things. Client stated she had some hard moments over the past few days, but she was able to find george by being with her dog. Client also gave a massage over the weekend and she was able to connect with her client. Client appeared to benefit from reflecting on her use of healthy coping skills. Will continue IOP tx as she continues to present with passive suicidal ideations and reports ongoing mood dysregulation.?
--- NOTE | 2018-10-25 11:20 | BH.SGPN.GN ---
Behaviors/Verbalizations/Mental Status: []Eye contact is good. Motor activity is appropriate. Appearance is casual, appropriate grooming. Speech is Appropriate. Mood is dysthymic. Affect is constricted. Thoughts are linear and logical. No evidence of psychosis. Client Response/Progress/Benefit: []Client responded well to session, semi-active participant in discussion. Client helped the group discuss and identify different social supports as well as the benefits of different supports. The group identified examples of personal, self-help, professional, spiritual, and co-worker social supports. Group identified benefits of each type of social support. Client reported she wants to increase her professional supports which will benefit her by continuing to work through struggles and learn healthy coping skills. Client appeared to benefit from increasing understanding of different types of social support and identifying ways she can improve. Client continues to struggle with depressed mood and difficulty applying skills. Client to continue IOP to prevent decompensation and increase use of coping skills. Narrative Note: []
--- NOTE | 2018-10-25 13:14 | BH.MDN_ITS ---
Multi-Disciplinary Note - Note 60-min Individual Time Started:: 10:34 Date: 10/25/18 Purpose of session/treatment goals addressed:: The purpose of this session was to address current symptoms, stressors, and barriers. Another goal was to identify healthy coping skills to improve emotional regulation. Other topics included: decisional balance, instant gratification, and opposite action. Eye Contact:: Good Motor Activity:: Appropriate Appearance:: Neat Speech:: Appropriate Mood:: Anxious Affect:: Other - tearful Thoughts:: Linear, Logical, No evidence of hallucinations/delusions noted Staff Interventions:: Therapist used active listening and open-ended questions to explore client's symptoms, stressors, and barriers to implementing coping skills. Therapist used cognitive restructuring techniques and dialectical thinking to help client catch and reframe distorted thinking. Therapist gently challenged client on self-sabotaging behaviors and helped client explore the costs and benefits of engaging in self-sabotage. Therapist discussed how psych osocial factors impact impulsiveness and instant gratification seeking. Therapist encouraged use of opposite action to prevent engaging in impulsive, maladaptive behaviors. Therapist assessed risk and client contracted for safety. Client Response:: Client responded well to session, open to meeting with therapist. Client reports she has been feeling overwhelmed by adult life which is causing her to feel stressed and increasing her urges to avoid. Client reported she has been avoiding taking care of cleaning because it seems too cumbersome. Client shared she quit her job at [employer] because client realized she did not have time for self-care or IOP. Client stated she continues to feel highly anxious about money which makes her doubt her ability to move to [place]. 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 Client somewhat receptive to thought challenging from therapist as client was willing to recognize that she is using all or nothing thinking. Client reported she continues to seek instant gratification which has led client to exploring unhealthy ways of making money. Client stated, I'm constantly fighting myself...the logical part of me knows I shouldn't do it, but the other side of me is like well it's money. Receptive to discussing the psychosocial impacts on need for instant gratification as well as the pros and cons of delaying gratification. Client able to connect that because of her complex trauma history, her decision making tends to be more impulsive and her need for instant gratification is more frequent. Client and therapist discussed the potential consequences of client's decisions on her future and mental health. Client recognized that there are more consequences to making money in unhealthy ways. Client reported she continues to struggle with motivation to change her thinking and actions. Client reported she belief that I just need to wander for a while. Therapist attempted to challenge client, but client disqualified the potential consequences of not making change. Client shared I know that I don?t want to go back, though and that she is willing to avoid things that would make her feel worse. Client and therapist also discussed the benefits of opposite action to promote impulse control and emotional regulation. Risks/Concerns:: Client reports passive suicidal thoughts today, but client denies any active suicidal ideations, plan, or intent as of 10/25/18. Client shared I think it would be easier, but I have no plans to end my life. Client identified protective factors to be her family and friends. Client reports ability to maintain safety and willing to reach out to support should she get worse. Progress Toward Goals/Plan:: Client reported increased motivation to improve her mental health and symptom management last session. However, this week, client reports low motivation to move forward in progress. Client stated, ?I just need to wander for a while, but I know I don?t want to move backwards.? Client acknowledges that not implementing coping skills or taking steps to change has c onsequences. Client currently endorses an apathetic mood, distorted thinking, low motivation, and passive suicidal ideations. Progress variable as client demonstrates inconsistent application of coping skills and self-reported low motivation. Client to continue IOP to prevent decompensation, maintain safety, and increase emotional regulation skills. Time Stopped:: 11:27
--- NOTE | 2018-10-26 09:00 | BH.SGPN.GN ---
Behaviors/Verbalizations/Mental Status: [Client alert and oriented, casually dressed and appropriately groomed. Eye contact good. Motor activity appropriate. Speech within normal limits. Affect congruent to topic being discussed, mood depressed and agitated. Thoughts linear and logical, no signs of hallucinations or delusions. Reviewed daily check in sheet, pt reporting SI at a score of 1/5 which is consistent with baseline, denies current plan, or intent. ] Client Response/Progress/Benefit: [Pt engaged in group discussion, actively listening and did well to challenge herself to be open to group support. Emotion for today is conflicted. Pt indicated that current emotion is due to worries about an upcoming meeting with her parents about her finances. Pt indicated feeling pressured to get a third job now that she has quit her job at [employer]. Pt did well to reflect and discuss her emotions associated with this; however appeared to be struggling with distorted thoughts regarding potential outcome of this discussion and had difficulties with dismissing suggestions from the group. Despite current stressor causing increased anxiety, pt did well to identify mental health wins of doing art and engaging in self-care. Pt continues to struggle to apply skills learned to her daily life and would benefit from continued IOP tx to promote consistent use of coping skills, improved communication with supports, and prevent decompensation.] Narrative Note: []
--- NOTE | 2018-10-26 10:08 | BH.SGPN.GN ---
Behaviors/Verbalizations/Mental Status: []Eye contact is good. Motor activity is appropriate. Appearance is casual, well groomed. Speech is Appropriate. Mood is depressed. Affect is constricted. Thoughts are linear and logical. No evidence of psychosis. Client Response/Progress/Benefit: []Pt active participant in group AEB pt contributing thoughts and ideas throughout session and listening attentively to peers. Group worked together to identify barriers to making changes or taking action in their lives which included: lack of self-awareness, old habits, negative mindset, fear of failure, negative emotions (depression, anxiety, etc..), lack of resources, and other people. Group also identified that benefits of change which included; improved relationships, increased communication, improved mental wellness, increased confidence, and feelings of accomplishment. Pt identified areas she would like to take back control over to include: depression, anxiety, low self esteem, feeling not good enough, and negative thoughts. Benefited from group through awareness of personal areas want to improve and benefits to taking action towards mental wellness. To continue IOP level of care to increase consistent utilization of healthy coping, continue to challenge distorted thoughts and prevent decompensation. Narrative Note: []
--- NOTE | 2018-10-26 11:42 | PCM.BH.PN_ITS ---
Progress Note Progress Note: Chief Complaint: [] History of Present Illness/Interim History: Patient is a 27-year-old single female who I last saw on September 28, 2018 for an initial evaluation at the [facility] for depression and anxiety and PTSD. Lexi states that she has been taking the Prozac 20 mg a day and has noted slight improvement but then feels like it plateaued. She feels that she may need a different medication. Her mother told her to request Zoloft because it is better for anxiety. I discussed with Lexi that Prozac and Zoloft are equivalent in their fax and we know that she tolerated Prozac in the past and it was helpful to her. Today is only the second day of IOP for Lexi despite having her initial eval almost 1 month ago. She states that she has not been coming much because she is afraid to share too much at the IOP. Her mother owns a business in [facility], she says, and [place] town and her mother told Lexi not to discuss her suicide. Lexi says that her mother does not like her to talk about her suicide at home. The patient feels like her mother tells her stories about how much better mom handled her life issues when she was young and this makes Lexi feel even worse than she does now. Mother also told Lexi to request an ADD medication but I discussed with her that I do not give stimulants at the IOP program. Apical states that she is afraid she will let too much out if she comes to IOP more often than she has. She deftly has some resistance to sharing and coming to IOP. She said her last IOP program was in [place] and so she was and is nervous about confidentiality. She states that the first IOP she did helped her a lot. She describes still having somewhat of a depressed mood, and fleeting suicidal ideation. She states that she does have a plan that she would overdose again or cut her wrists if she attempted suicide again. She states that she does not think she would do this because she does not want to cause anyone any pain like her family. 1 of her biggest stressors right now is financial stress. She is working 2 jobs and was working a new job but quit 2 weeks after she started. She did not like working 3 jobs. [] Current Psychiatric Medications: [Prozac 20 mg p.o. daily] Review of Symptoms: [Negative except as noted in present illness] Mental Status Examination: She is a 27-year-old female who appears normal for stated age. She is casually dressed and groomed with good hygiene. She has good eye contact and speech is normal rate rhythm and fluent. Mood is depressed off and on per the patient. Affect is consistent with depression and she is teary at times during the interview. Thought process: organized[] and goal-directed. Thought content: Admits to fleeting thoughts of suicide with a plan to overdose or cut wrists. She does not feel that this is an active suicidal ideation. No evidence of homicidal ideation. No evidence of hallucinations or delusions. Judgment limited but present insight limited but present impulsivity low to moderate. Diagnoses: [] [place] I: [Major depressive disorder recurrent severe without psychosis, generalized anxiety disorder, posttraumatic stress disorder] [place] II: [Cluster B traits] [place] III: [Negative [place] IV: Financial stress] Plan: [Prozac was increased to 40 mg p.o. daily. I will see the patient in follow-up in 2 to 3 weeks. Long discussion was held on the value of relaxing and sharing as needed during the IOP program. Discussed with patient that she needs to develop some boundaries in her relationship with her mother and need for approval from mom. Patient promises to try to attend the IOP 2 to 3 days a week. She continues to require the IOP setting with it structure, education, group and individual therapy, and support. Hopefully this will prevent exacerbation of her condition requiring hospitalization. She will continue to follow-up with her outpatient psych and medical providers as needed]
--- NOTE | 2018-11-01 09:00 | BH.SGPN.GN ---
Behaviors/Verbalizations/Mental Status: [] Eye contact is poor. Motor activity is appropriate. Appearance is neat. Speech is Appropriate. Mood is anxious. Affect is congruent. Thoughts are linear and logical. No evidence of psychosis. Reviewed daily check in sheet and pt reports 4/5 for suicidal ideations and 0/5 for intent. Therapist notified to complete 1on1. Client Response/Progress/Benefit: [] Pt spoke when prompted. Reports passive thoughts of what's the point. Primary stressors related to finances and hopelessness. Continues to struggle with what she is going to do the rest of her life. Feels like she has no career options. Reports limited support from mother and believes that mother is making snarky comments regarding pt's current lack of money. Pt gave some examples. Admits to poor decisions with her money and blames herself for her current position. Group normalized her emotions and empathized her her thoughts. Not utilizing skills or attempting to reframe or challenge thoughts. When group challenges her thoughts and reframes she is responsive as she was able to identify what happiness is to her which group pointed out had nothing to do with money. Smiles at times and made a few jokes with peers. No progress noted per pt report. Will continue in IOP to maintain safety, prevent decompensation, and stabilize mood. Narrative Note: []
--- NOTE | 2018-11-01 10:15 | BH.SGPN.GN ---
Behaviors/Verbalizations/Mental Status: []Client alert and oriented, disheveled appearance. Eye contact poor. Motor activity appropriate. Speech within normal limits. Affect flat, mood dysthymic, irritable. Thoughts linear, logical, no signs of hallucinations or delusions. Client Response/Progress/Benefit: []Client withdrawn during beginning of session, but then became more engaged. Worked together with the group to define and identify differences between internal and external conflict. Group identified and discussed the benefits of addressing internal/external conflict which includes; not letting emotions stockpile, preventing further issues, and bettering mental health. Client worked with group to identify barriers to overcoming conflict which included; self-sabotage, poor emotional regulation, lashing out, manipulation, avoidance, externalizing, and negative thinking. Attentive during psychoeducation on different conflict styles such as avoiding, accommodating, competing, and collaborative. The group began to review benefits and drawbacks to each style and client provided insight to discussion. Benefited as she was able to identify and define conflict as well as increase awareness of how conflict style impacts mental health. Progress continues to be variable as client is often quiet and disengaged in group setting. Will continue IOP tx to prevent further decompensation, maintain safety, and improve mood stability.
--- NOTE | 2018-11-01 11:16 | BH.SGPN.GN ---
Behaviors/Verbalizations/Mental Status: [Client alert and oriented, casually dressed though appropriately groomed. Eye contact fair to good - pt often looking down as she was coloring to self-regulate. Motor activity appropriate. Speech within normal limits. Affect congruent to topic being discussed, mood depressed and agitated. Thoughts linear and logical, no signs of hallucinations or delusions.] Client Response/Progress/Benefit: [Pt receptive of session, providing more input and appeared more engaged than in previous group. At times pt continued to struggle with her own thoughts and being present. She did well to work with the group on identifying the various characteristics, potential drawbacks and benefits of the conflict resolution styles not reviewed in previous group. Pt discussed connecting with the characteristics of the competing approach to conflict and went on to describe how this has impacted friendships in the past. She identified that although this is what she is often drawn to and often finds most effective in getting her needs met, she would like to learn to be more collaborative at times. Pt appeared to benefit from increasing awareness of her personal conflict resolution style and learning ways to increase healthy conflict resolution. Pt progress noted in increased ability to engage during this group despite ruminating thoughts. She continues to struggle with active application of healthy skills learned and often engages in externalizing or reaching out to supports in healthy ways. Pt is therefore recommended continued IOP tx to improve emotion regulation skills, promote healthy change behaviors, as well as maintain safety. ] Narrative Note: []
--- NOTE | 2018-11-01 14:20 | BH.DS_ITS ---
Discharge Summary - Demographics Date of Admission:: 09/27/18 Discharge Date: 11/01/18 Presenting Problems at Admission:: Client is a 27-year-old female with a history of depression, PTSD, and anxiety. Client was referred to [facility] by a family member following a recent suicide attempt on 09/22/18. Client ingested 1-1/2 bottles of her prescription pills on a family vacation in [place] and was hospitalized. Client reported multiple triggers to her suicide attempt including issues with her adoptive brother and reminders of past family trauma. At admission, client endorsed a depressed mood, lack of energy, apathy, lack of concentration, passive wishes of , lack of motivation, avoidance behaviors, emotional dysregulation, irritability and erratic sleep and appetite. Client reported being unable to function at school and shared she was failing her classes. Client's symptoms were interfering with her social, occupation, and familial functioning. 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 Client voluntarily went to the [facility] Emergency Room to be further evaluated for her suicidal ideations. Client will be discharged from [facility] at this time due to needing a higher level of care. Client's mother was called and informed of client's current symptoms, situation, and evaluation at the ER. - Treatment Progress During Treatment & Response: Client discharged from [facility] before completing her treatment goals and demonstrated mild progress while in [facility]. Client self-reported lack of follow through in applying coping skills and reported lack of motivation which was likely a contributor to her mild progress. Client demonstrated mild engagement during group sessions as client connected with peers, but she was often quiet and disengaged during discussions. Client was receptive to meeting individually, however, client reported at times she was not yet ready to make changes. Throughout client's time in [facility], she continued to endorse apathy, low motivation, a depressed mood, chronic suicidal ideations, worthlessness, hopelessness, difficulty concentrating, and irritability. Issues Still to be Addressed:: Client was discharged from [facility] before completing her treatment goals. Client can benefit from ongoing work to improve her emotional regulation skills, maintain safety, and decrease the intensity of her mental health symptoms. Client self-reported lack of follow through in applying coping skills while in IOP which could have contributed to her decompensation. Client can also benefit from improving her interpersonal effectiveness skills, challenging distortions, and reducing impulsivity. Discharge Recommendations/Instructions:: Client was encouraged to follow recommendations of inpatient treatment team. Client was informed she can return to IOP post inpatient discharge for continuity of care, should client wish. Discharge Handout: Complete Discharge Handout with client on aftercare options and continuity of care.
--- NOTE | 2018-11-01 14:58 | BH.MDN_ITS ---
Multi-Disciplinary Note - Note 60-min Individual Time Started:: 12:10 Date: 11/01/18 Purpose of session/treatment goals addressed:: The purpose of this session was to address current symptoms, stressors, and assess for risk. Another goal was to address increased suicidal ideations. Eye Contact:: Poor Motor Activity:: Slowed Appearance:: Disheveled Speech:: Soft, Other - angry remarks Mood:: Irritable, Dysthymic, Other - apathetic Affect:: Flat - tearful Thoughts:: Circular - thoughts related to being a burden, No evidence of hallucinations/delusions noted Staff Interventions:: Therapist used active listening and open-ended questions to gather information on client's current stressors, symptoms, and triggers. Therapist attempted to help client challenged distorted thoughts, but client declined. Therapist assessed for risk and attempted to complete a safety plan with client, but client declined to complete a safety plan. Therapist discussed options with client to promote safety and encouraged client to the ER due to suicidal ideations. Therapist informed treatment team of client?s need for higher level of care and therapist and [facility] clinical informatics manager walked with client to the ER for an evaluation. Therapist called client?s mother to inform her for current situation and client?s increased suicidal ideations with plan. Client Response:: Client entered session with a flat affect and became tearful when talking with therapist. Client shared she is getting to the point where she feels like I'm ready to be done with it all. Client reported she no longer sees any benefits to living and reports belief that I'm just a piece of shit and no one needs to deal with me anymore. Client reported belief that no one cares about her and that she no longer sees a future for herself. Client unable to challenge distorted thoughts and became upset with therapist for attempting to reframe distortions. Client declined to complete a safety plan and shared I don't want to lie. Client declined to call mother due to reporting belief her mother will have one more reason to yell at me. Client was informed by therapist of [facility]'s suicidality protocol and safety measures as well as client?s options to addressing her increased suicidal ideations. Client shared she did not want to get additional help for her increased suicidality. Client unwilling at first to go to the ER for an evaluation, but after talking with therapist and [facility] clinical informatics manager, client was willing to voluntarily walk over to ER with [facility] staff. Risks/Concerns:: Client endorses a more depressed, apathetic mood today and was expressing more suicidal ideations than previous sessions. Client reported she did not want to ?fight myself anymore.? Client shared she also had a plan and intent to follow through with her suicidal thoughts. Client reported she was going to go home and take my meds and my parents' meds and lock the door. Client unable to contract for safety and presented as an immediate risk to self. At first, client was unwilling to voluntarily seek higher level of care, but then voluntarily went to the ER with therapist and [facility] clinical informatics manager. Progress Toward Goals/Plan:: Due to presenting suicidal ideations with a plan and inability to contract for safety, it was determined that client was in need of higher level of care to maintain safety. Client voluntarily went to the [facility] Emergency Room to be further evaluated for her suicidal ideations. Client will be discharged from [facility] at this time due to needing a higher level of care. Client's mother was called and informed of client's current symptoms, situation, and evaluation at the ER. Time Stopped:: 13:10
--- NOTE | 2018-11-01 15:10 | BH.TPR ---
Treatment Plan Review Date of Admission:: 09/27/18 Date of Treatment Plan Review:: 11/01/18 Admitting Diagnoses:: Major depressive disorder recurrent severe without psychosis F33.2, generalized anxiety disorder, posttraumatic stress disorder Current Diagnoses:: Major depressive disorder recurrent severe without psychosis F33.2, generalized anxiety disorder, posttraumatic stress disorder Patient's Response to Treatment:: Client?s response to treatment has been variable as there are times when client has been engaged and showing positive strides. However, client has struggled to maintain mood stability since admission and she currently presents with a regression of symptoms. In group sessions, client is often withdrawn and coloring throughout session. In individual sessions, client has overall presented as receptive and willing to meet with therapist. However, client reports inconsistent follow through with her homework and goals established in session. Client currently reports coping skills are not working for her which makes client less motivated to use them. Client also struggles at times with being honest with her supports due to fear of consequences. Client's DSM-5 scores increased from admission and her suicidal ideations have increased as well. For these reasons, client is in need of a higher level of care. Status of Current Problems and Symptoms: Client had been showing variable progress since starting IOP as shown by client?s ongoing difficulty managing her depressive symptoms. Today, client presented to [facility] with increased suicidal ideations with a plan and inability to plan for safety. Client was presenting with more apathy, lower energy, and a flatter affect than normal. Client also endorsed hopelessness, negative thinking, and irritability. Client willing to seek higher level of care and voluntarily went to the [facility] ER. Problem #1 Problem Name:: Pt will reduce depressive symptoms, SI, and lack of motivation Status of Goals:: Objective 1- not complete. Client can identify negative thoughts, but client reports she is unable to challenge these thoughts at this time. Client also continues to report isolative behaviors and suicidal ideations. Objective 2- not complete. Client reports she knows coping skills, but client states they are ineffective for her right now. Client?s DSM-5 symptoms for depression reduced by one point since admission, but her suicidal ideations increased since admission. Team Recommendations:: Client is recommendation to seek higher level of care at this time due to the high acuity of her symptoms and to maintain safety. Problem #2 Problem Name:: Pt will increase emotional regulation and to better manage anxiety PTSD Status of Goals:: Objective 1- partially complete. Client can identify common stress reactions and symptoms related to trauma. However, client self-reports inconsistent application of coping skills which makes it difficult for client to see stable progress. Objective 2- Not complete. Client can identify triggers, but she continues to report high anxiety and emotional dysregulation daily. Client?s DSM-5 scores for anxiety have increased since intake going from 10/31 to 01/31. Team Recommendations:: Client is recommendation to seek higher level of care at this time due to the high acuity of her symptoms and to maintain safety.
--- NOTE | 2018-12-15 15:11 | BH.TPR ---
Treatment Plan Review Date of Admission:: 11/09/18 Date of Treatment Plan Review:: 12/15/18 Admitting Diagnoses:: Major depressive disorder recurrent severe without psychosis F33.2, rule out bipolar NOS; PTSD; generalized anxiety disorder; rule out borderline personality disorder. Current Diagnoses:: Major depressive disorder recurrent severe without psychosis F33.2, rule out bipolar NOS; PTSD; generalized anxiety disorder; rule out borderline personality disorder. Problem #1 Problem Name:: Pt. will reduce depressive symptoms, SI, and negative thinking Problem #2 Problem Name:: Pt. will increase mood stability by increasing emotional regulation skills
== END 2018-11-01 13:00 | disposition short-term general hospital (02) ==
LOC: BHIOP 09:00
PROVIDERS: Family Provider Student in an Organized Health Care Education/Training Program; PCP Student in an Organized Health Care Education/Training Program; Referring Provider Psychiatry & Neurology Psychiatry; Visit Provider Psychiatry & Neurology Psychiatry
DX: F33.2 Major depressive disorder, recurrent severe without psychotic features (principal); F41.1 Generalized anxiety disorder; F43.10 Post-traumatic stress disorder, unspecified; Z79.899 Other long term (current) drug therapy
CPT/HCPCS: 99214; H0035; H2012; H2020; 90837; 90853

== ENCOUNTER 2018-11-01 13:38 | Emergency (ER) | payer MEDICAID, SELFPAY ==
[2018-11-01] VITALS (7 sets, daily range): BP systolic 114–138; BP diastolic 64–71; PULSE 68–102; RESP 15–18; TEMP 36.3; O2SAT 97–99; BMI 28.8
--- NOTE | 2018-11-01 14:23 | ED.VISSUMM ---
- ER Visit Summary Date of Service: 11/01/18 Chief Complaint: Depression and suicidal ideation History of Present Illness: The patient is a 27 F who has a history of general anxiety disorder, PTSD, and depression. She is currently on 40 mg of Prozac. She also utilizes a Mirena. She tells me that she is feeling hopeless and depressed with her adult life. She states that she would like to by overdose taking her and her parents pills. 1 month ago she had a suicide attempt and tells me that if she is going to herself she is therapy when staff noted her behavior brought her to the hospital. She denies that she has had any ingestions today or in supplements. She denies Drug or alcohol use today. Physical Examination: Afebrile vital signs are stable Gen: Well-nourished well-developed Head: Normocephalic atraumatic Eyes: Perrl EOMI ENT: TMs clear no rhinorrhea moist mucous membranes Neck: Supple no lymphadenopathy no JVD nontender CVS: Regular rate rhythm no murmurs normal S1-S2 Respiratory: No distress clear to auscultation bilaterally chest nontender Abdomen: Soft nontender nondistended normal bowel sounds no masses Back: Nontender Extremity: Nontender no edema Skin: Normal color no rash Neuro: alert orientated ?3 CN II-XII intact normal strength sensation Psych: Patient is crying. She makes very little eye contact. She admits to suicidality. Emergency Department Course and Treatment: Psychiatric screening labs will be obtained. Patient was discussed with our social service agency director who will evaluate the patient. At this point we are planning for a transfer to psychiatric facility. Impression: 1. Major depressive disorder 2. Suicidal ideation This note was generated with [employer] dictation software. It may contain incorrect words, spelling, and punctuation that were not noted in review of the chart prior to signing ED Disposition - Plan for ED Patient: Referrals: Kevin Blackburn DO [Primary Care Provider] -
[2018-11-01 14:46] LABS: Absolute Lymphocyte Count 1.76 X10^3/uL (0.83-4.51); Absolute Neutrophil Count 3.6 X10^3/uL (2.0-7.7); Basophil# 0.02 X10^3/uL; Basophil% 0.3 % (0-1); Eosinophil# 0.11 X10^3/uL; Eosinophils% 1.8 % (0-5); Hematocrit 41.2 % (37-47); Hemoglobin 14.7 g/dL (12.0-15.0); Lymphocyte # 1.76 X10^3/ul (4.0); Lymphocyte % 28.9 % (19-41); Mean Corp Hgb Conc 35.7 g/dL (32-36); Mean Corpuscular Hgb 29.5 pg (27.0-32.0); Mean Corpuscular Volume 82.6 fL (81-99); Mean Platelet Vol. 10.7 fl (6.2-12.0); Monocyte# 0.58 X10^3/uL; Monocyte% 9.5 % (0-10); NRBC Flagged by Analyzer 0 % (0-5); Neutrophil % 59.2 % (47-70); Platelet Count 260 K/mm3 (150-450); RBC Distribution Width CV 12.5 % (11.6-14.6); RBC Distribution Width SD 37.7 fl (35.1-43.9); Red Blood Count 4.99 M/mm3 (4.2-5.4); White Blood Count 6.1 K/mm3 (4.4-11.0)
[2018-11-01 14:50] LABS: Internal QC Validated? YES +Cl - CLEAR BKGD; Pregnancy, Serum, hCG Quali. NEGATIVE Negative
[2018-11-01 15:06] LABS: ALB/GLOB Ratio 1.1 RATIO (0.9-2.4); AST(SGOT) 13 U/L (15-37); Alanine Aminotransfer ALT/SGPT 24 U/L (13-56); Alkaline Phosphatase 69 U/L (45-117); Anion Gap 5 (5-15); BUN 11 mg/dL (7-18); BUN/Creat Ratio 12.9 RATIO (10-20); Calcium,Total 8.8 mg/dL (8.5-10.1); Chloride 107 mmol/L (98-107); Creatinine, Serum 0.85 mg/dL (0.55-1.02); EST Glomerular Filtration Rate 86 mL/min (>60); Est Glom Filt Rate - Afr Amer 104 mL/min (>60); Estimated Creatinine Clearance 91.04 ml/min; Globulin 3.6 g/dL (2.2-4.2); Glucose 86 mg/dL (74-106); Potassium 3.7 mmol/L (3.5-5.1); Protein, Total 7.6 g/dL (6.4-8.2); Sodium Level 137 mmol/L (136-145); Thyroid Stim Hormone (TSH) 1.41 uIU/mL (0.358-3.74)
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
[2018-11-01 16:15] LABS: Amphetamine Urine VISTA NEGATIVE (<1000 ng/mL); Barbiturate Urine VISTA NEGATIVE (< 200 ng/mL); Benzodiazepine Urine VISTA NEGATIVE (< 200 ng/mL); Cocaine Urine VISTA NEGATIVE (< 300 ng/mL); Ecstacy Urine VISTA NEGATIVE (< 500 ng/mL); Methadone Urine VISTA NEGATIVE (< 300 ng/mL); PCP Urine VISTA NEGATIVE (< 25 ng/mL); THC Urine VISTA NEGATIVE (< 50 ng/mL); Vista UDS pH Range 6
--- NOTE | 2018-11-01 16:15 | ED.RN ---
PT MOTHER IN THE ED. PT CONFIRMED SHE DOES NOT WANT HER MOTHER IN THE ROOM. MOTHER INFORMED PT IS REQUESTING NO VISITORS
--- NOTE | 2018-11-01 18:54 | CM.ED ---
Social Work Telephone call from [facility], patient has been accepted. Accepting doctor: Dr. Dong. N:N report: [phone]. Patient admitting to Adult Behavioral Unit. Notified patient, nursing staff, and Doctor [facility] [place] slip faxed to [facility] Patient also agreeable to this social services contacting patient mother to communicate where patient is being discharged to. Telephone call to patient mother, Prerna. This social services communicated above information. Jose Angel Meza MSW, KHALIDA
== END 2018-11-01 19:34 ==
PROVIDERS: Emergency Provider Emergency Medicine; Family Provider Student in an Organized Health Care Education/Training Program; PCP Student in an Organized Health Care Education/Training Program
DX: F32.9 Major depressive disorder, single episode, unspecified (principal); R45.851 Suicidal ideations; F43.10 Post-traumatic stress disorder, unspecified; F41.1 Generalized anxiety disorder
CPT/HCPCS: 80053; 80307; 80320; 84443; 84703; 85025; 99284; G0480

== ENCOUNTER 2018-11-09 09:00 | Outpatient (RCR) | payer MEDICAID, SELFPAY ==
[2018-11-01 13:40] VITALS: BMI 28.8
--- NOTE | 2018-11-09 09:05 | BH.SGPN.GN ---
Behaviors/Verbalizations/Mental Status: []Client alert and oriented, neatly dressed and groomed-full makeup. Eye contact fair. Motor activity appropriate. Speech within normal limits. Affect constricted, mood anxious, determined. Thoughts linear, logical, no signs of hallucinations or delusions. Reviewed client?s symptom tracker, no risk for suicidal ideation, plan, or intent as of 11/09/18. Client Response/Progress/Benefit: []Client responded well to session, attentive and engaged throughout. Client reports feeling ?anxious and determined? today. Client was recently discharged from [facility] and client reported feeling grateful for her experience there. Client shared while she was in the hospital, she had a realization that when she does not work towards her mental health goals ?I?m not doing anything to anyone but myself.? Client reported she has been reminding herself that ?I?m still here and I have many more years to go.? Client shared she continues to struggle with the stressors of ?adulting? which include paying bills and getting on her own phone plan. However, client reports she plans to approach these stressors with a different mindset. Appeared to benefit from reflecting on her change in perspective. Will continue IOP to prevent decompensation and improve mood stability.
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
--- NOTE | 2018-11-09 10:21 | BH.DR.ITP ---
Initial Treatment Plan - Patient Information Visit Information: ADMISSION DATE: EXPECTED LOS: 4-6 weeks - Problems/Symptoms Problem #1:: Depression Symptom:: rumination, suicidal thoughts, distorted thinking Problem #2:: strong cluster B traits Symptom:: overwhelmed by affect at times, labile mood
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
--- NOTE | 2018-11-09 12:10 | BH.MDN_ITS ---
Multi-Disciplinary Note - Note 30-min Individual Time Started:: 11:16 Date: 11/10/18 Purpose of session/treatment goals addressed:: The purpose of this session was to gather information on client's current stressors, symptoms, and treatment goals for returning to [facility]. Another goal was to discuss expectations for treatment. Other topics included communicating with support. Eye Contact:: Good Motor Activity:: Appropriate Appearance:: Neat Speech:: Appropriate Mood:: Other - calm Affect:: Congruent - tearful at times Thoughts:: Linear, Logical, No evidence of hallucinations/delusions noted Staff Interventions:: Therapist used active listening and open-ended questions to explore client's current stressors, symptoms, and treatment goals. Therapist discussed expectations for treatment and helped client gain awareness of how client?s engagement will promote or hinder progress. Therapist provided emotional support and strengths perspective to empower client. Therapist gently challenged distortions and gave client homework to identify treatment barriers. Client Response:: Client responded well to session, open to meeting with therapist. Client reported she has a different perspective since discharging from the hospital. Client shared she realized my parents can't do things for me, it has to be me. Client and therapist discussed the role client plays in her mental health treatment and client reported she is more ready to make changes. Client stated she has also come to the realization that she can find purpose in [place] and that client does not need to move to [place] to find happiness in life. Client acknowledged that during her prior participation in [facility], client did not want to get better, which hindered her progress and reinforced negative thinking. Client and therapist processed a current stressor involving client's half-brother. Client became tearful because her half-brother told client he loves her. Client reported ambivalence about this because I want to be excited but I'm afraid to be let down. Client able to recognize that negative thinking and dwelling on the past can reinforce depressive symptoms and prevent client from moving forward. Able to identify coping skills to improve mood stability. Discussed the importance of communication with her parents and healthy supports. Client stated she is motivated and determined to better herself and become more accountable. Client willing to identify her treatment barriers for homework. Risks/Concerns:: Client denies any suicidal ideations, plan, or intent as of 11/09/18. Client future oriented and reported I have a lot of life to live. Progress Toward Goals/Plan:: Client's first day back in IOP after her hospitalization at [facility]. Client reports being determin ed and more motivated to improve her mental health symptoms post inpatient discharge. Client reports she continues to struggle with negative thoughts, impulsive urges, and difficulty managing emotions. Client stated her depressive symptoms have decreased since her inpatient discharge. Client denies suicidal ideations and is future oriented and hopeful. Client acknowledges that she will need to be active in her treatment in order to make progress. Will continue IOP to prevent decompensation and improve emotional regulation. Time Stopped:: 11:50
--- NOTE | 2018-11-09 13:15 | BH.MTP ---
Master Treatment Plan - Patient Information Program Physician:: Che Marquez Primary Therapist:: Adelita Medley - Psychiatric Diagnoses Psychiatric Diagnoses:: Major depressive disorder recurrent severe without psychosis F33.2, rule out bipolar NOS; PTSD; generalized anxiety disorder; rule out borderline personality disorder. Diagnosis Code(s):: F 33.2 - Estimated LOS Estimated LOS (in weeks):: 6 Problem/Goal #1 - Problem/Goal #1 Stated Goal:: Client will reduce depressive symptoms, suicidal thoughts, and negative thinking due major depressive disorder. Description of Barriers: Client reports history of trauma that continues to impact client. Client reports improved motivation to change her behaviors, but she has a history of crisis behaviors including shutting down, wanting to run, suicidal ideations, and avoidance which causes additional issues for client. Client demonstrated inconsistent application of coping skills during her last admission in [facility], which can hinder her progress if this continues. Client reports a good relationship with her adoptive parents, but she has a history of interpersonal issues with them. Client reports awareness of warning signs, triggers, and healthy coping skills, but per her report, she has a history of ignoring these at times. Client endorses numerous distorted thoughts that reinforce mental health symptoms and cause interpersonal relationship issues. Functional Impact: Client is a 28-year-old female with a history of depression, PTSD, cluster B traits, and anxiety. Client previously participated in [facility] from 09/27/18-11/01/18 but was discharged due to inpatient hospitalization for suicidal ideations with plan to overdose. Client was recently discharged from [facility] for [facility] on 11/08/18. Client has one previous suicide attempt on 09/22/18 in which client ingested 1-1/2 bottles of her prescription pills on a family vacation in [place] and was hospitalized. Client currently endorses a depressed mood of reduced intensity, lack of energy, lack of concentration, passive wishes of , lack of motivation, emotional dysregulation, irritability and anxiety about being more independent. Client?s symptoms continue to impact her social, familial, and occupational functioning. Goal Relevant Strengths/Supports: Client presents as a kind, intelligent, and resilient woman who has overcome numerous hardships in life. Client has shown ability to bounce back from adversity in the past which presents as a protective factor to her current treatment. Client has strong family support from her adoptive parents. Client reports increased motivation and desire to improve her wellbeing this time around in IOP. Client stated she is feeling more ?at peace? with her life and reports recognizing that she has to hold herself accountable. Client has good insight to her warning signs, triggers, and has knowledge of coping skills. - Objectives Objective #1 Stated Objective: Client will identify and replace 2-3 negative thinking patterns that reinforce unhelpful action urges, SI, and negative self-talk. Interventions: Through groups and individual therapy, client will be provided with education on cognitive distortions, mistaken beliefs, and identifying and combating negative self-talk. Therapist will assist client in recognizing triggers for increased suicidal and depressive thought patterns. Therapist will help client explore connection between thoughts, feelings, and actions and help client reframe depressive thought patterns. Therapist will help client gain awareness of why client has developed negative thoughts and core beliefs of self. Therapist will use DBT and CBT techniques to challenge unhelpful thought patterns. Discharge Criteria: Client will have accomplished this goal when client can identify and replace at least 2 negative thinking patterns with more realistic, positive statements. Target Date: 12/21/18 Review Date: 12/09/18 Status: open Objective #2 Stated Objective: Client will learn and utilize 2-3 healthy coping strategies to better manage depressive and mood symptoms as shown by reduced DSM-5 scores. Interventions: Through group and individual sessions, therapist will help client identify triggers and warning signs of depression and emotional dysregulation including emotional, physical, and behavioral changes. Therapist will teach client various coping skills to manage her symptoms and give client tangible resources to use to regulate emotions. Therapist will use cognitive restructuring techniques and help client gain awareness of negative thoughts that reinforce depressive cycles. Therapist will help client incorporate behavioral activation, opposite action, motivational interviewing, and assist client in setting SMART goals. Discharge Criteria: Client will have met this goal when she can report learning and using at least 2 coping skills to manage depressive symptoms and show a reduction in DSM-5 symptoms. Target Date: 12/21/18 Review Date: 12/09/18 Status: open Problem/Goal #2 - Problem/Goal #2 Stated Goal:: Client will increase mood stability through increasing emotional regulation skills. Description of Barriers: Client reports history of trauma that continues to impact client. Client reports improved motivation to change her behaviors, but she has a history of crisis behaviors including shutting down, wanting to run, suicidal ideations, and avoidance which causes additional issues for client. Client demonstrated inconsistent application of coping skills during her last admission in [facility], which can hinder her progress if this continues. Client reports a good relationship with her adoptive parents, but she has a history of interpersonal issues with them. Client reports awareness of warning signs, triggers, and healthy coping skills, but per her report, she has a history of ignoring these at times. Client endorses numerous distorted thoughts that reinforce mental health symptoms and cause interpersonal relationship issues. Functional Impact: Client is a 28-year-old female with a history of depression, PTSD, cluster B traits, and anxiety. Client previously participated in [facility] from 09/27/18-11/01/18 but was discharged due to inpatient hospitalization for suicidal ideations with plan to overdose. Client was recently discharged from [facility] for [facility] on 11/08/18. Client has one previous suicide attempt on 09/22/18 in which client ingested 1-1/2 bottles of her prescription pills on a family vacation in [place] and was hospitalized. Client currently endorses a depressed mood of reduced intensity, lack of energy, lack of concentration, passive wishes of , lack of motivation, emotional dysregulation, irritability and anxiety about being more independent. Client?s symptoms continue to impact her social, familial, and occupational functioning. Goal Relevant Strengths/Supports: Client presents as a kind, intelligent, and resilient woman who has overcome numerous hardships in life. Client has shown ability to bounce back from adversity in the past which presents as a protective factor to her current treatment. Client has strong family support from her adoptive parents. Client reports increased motivation and desire to improve her wellbeing this time around in [facility]. Client stated she is feeling more ?at peace? with her life and reports recognizing that she has to hold herself accountable. Client has good insight to her warning signs, triggers, and has knowledge of coping skills. - Objectives Objective #1 Stated Objective: Client will identify 2 triggers and 2 coping skills to use when client experiences mood dysregulation and has increased urges to engage in unhealthy coping skills. Interventions: Through individual and group counseling client will be provided with education on healthy coping skills to manage mood symptoms, impulse, and crisis behaviors. Therapist will provide information on healthy alternatives to emotion release. Individual therapist will teach client DBT techniques to increase emotional regulation and mindfulness. Therapist will also engage client to use self-compassion while working to change behaviors. Discharge Criteria: Client will have accomplished this goal when client can identify at least 2 triggers and 2 coping skills to increase mood stability and reduce unhealthy action urges. Target Date: 12/21/18 Review Date: 12/09/18 Status: open Objective #2 Stated Objective: Client will identify 2-3 cognitive distortions that lead to mood dysregulation and learn 2-3 ways to manage these thoughts to improve mood stability. Interventions: Therapist will provide education on the most common cognitive distortions and teach client the connection between thoughts, emotions, and feelings. Therapist will assist client in identifying, challenging, and replacing dysfunctional thoughts with positive, more realistic thoughts. Therapist will use CBT and DBT techniques to help client gain awareness of thinking errors and learn how to more effectively handle negative thoughts that reinforce unhealthy coping skills. Discharge Criteria: Client will have accomplished this goal when can identify at least 2 cognitive distortions that reinforce mood dysregulation and at least 2 coping skills to manage negative thoughts. Target Date: 12/21/18 Review Date: 12/09/18 Status: open
--- NOTE | 2018-11-10 09:00 | BH.SGPN.GN ---
Behaviors/Verbalizations/Mental Status: [] Eye contact is good. Motor activity is appropriate. Appearance is casual. Speech is Appropriate. Mood is depressed. Affect is flat. Thoughts are linear and logical. No evidence of psychosis. Reviewed daily check in sheet and no reports of suicidal ideations or intent Client Response/Progress/Benefit: [] Pt participated at times during group discussions. Emotions for today is tired. Talked at length regarding recent boundary setting due to obtaining a new phone number. She wants to start fresh and that involves excluding certain people from her life. She accomplished several tasks in the past few days and is feeling proud. Notes improved decision-making and self-care. Reframing thoughts with the goals to be more flexible. Believes that her recent psychiatric hospitalization was a good way to reset herself. Notes that while the admission was overall not positive it did lead to a perspective change about herself and her future. More hopeful. Progress noted. Benefited from group support, encouragement, and feedback. Will continue in IOP to maintain safety, prevent decompensation, and improve functioning. Narrative Note: []
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
--- NOTE | 2018-11-10 10:08 | BH.SGPN.GN ---
Behaviors/Verbalizations/Mental Status: []Client alert and oriented, neatly dressed and groomed. Eye contact good. Motor activity restless. Speech within normal limits. Affect congruent, mood dysthymic. Thoughts linear, logical, no signs of hallucinations or delusions. Client Response/Progress/Benefit: []Client responded well to session, attentive and participating in discussion. Attentive during discussion of quote. Participated in discussion of things that can keep people feeling trapped or stuck in life including; isolation, lack of trust, substance use, focusing on negatives, lack of awareness, denial, and lack of self-worth. Group discussed the connection between thoughts, emotions, and behaviors as well as how negative thinking can keep a person stuck. Client attentive during psychoeducation on maintenance cycles. Client able to identify negative thoughts that have reinforced depression and kept client feeling trapped. Client shared her negative thought which was ?I?m a fucking moron and people would be happier without me.? Client reported this thought has caused increased suicidal ideation in the past. Appeared to benefit from gaining awareness of how negative thoughts reinforce mental health symptoms and keep people stuck. Progress noted in client?s report of improved motivation to better her mental health. Will continue IOP to prevent decompensation, increase emotional regulation, and maintain safety.
--- NOTE | 2018-11-10 11:10 | BH.SGPN.GN ---
Behaviors/Verbalizations/Mental Status: [] Client alert and oriented, casually dressed and groomed. Eye contact fair. Motor activity restless. Speech within normal limits. Affect constricted. Mood depressed. Thoughts linear, logical, no signs of hallucinations or delusions. Client Response/Progress/Benefit: []Client engaged participant AEB pt contributing when elicited by therapist and listening to peers. Client appeared to connect with maintenance cycles and recognized how negative thinking can keep a person stuck. Client identified a negative thought that has kept her stuck. Client?s thought was ?I'm a fucking piece of shit, no one cares about me.? Client able to connect how this thought maintains depressive cycle. Client needed assistance from therapist to help her reframe thought. Eventually pt able to reframe thought to ?I know several people in my life that care and love me.? Client shared this thought would improve her mental health because it would make her feel loved. Client appeared to benefit from practicing challenging negative thinking. Client to continue IOP to prevent decompensation.
--- NOTE | 2018-11-10 14:28 | BH.MDN ---
Multi-Disciplinary Note - Note 45-min Individual Time Started:: 12:11 Date: 11/10/18 Purpose of session/treatment goals addressed:: The purpose of this session was to address current symptoms, stressors, and review homework. Another goal was to discuss structure of sessions and treatment goals. Other topics included: Dialectical thinking and emotional regulation skills. Eye Contact:: Good Motor Activity:: Appropriate Appearance:: Neat Speech:: Appropriate Mood:: Euthymic Affect:: Congruent Thoughts:: Linear, Logical, No evidence of hallucinations/delusions noted Staff Interventions:: Therapist used active listening and open-ended questions to explore client?s current symptoms, stressors, and review homework. Therapist gathered client?s treatment goals. Therapist introduced dialectical thinking and emotional regulation techniques to replace unhelpful action urges. Therapist provided psychoeducation on emotional action urges and the benefits of opposite action to prevent negative consequences. Therapist used a DBT worksheet to help client gain awareness of her action urges for different emotions and how those urges have impacted client. Therapist gave client homework to use the DBT worksheet to track her use of opposite action. Client Response:: Client responded well to session, open to meeting with therapist. Client shared she did not have time to write out her barriers and treatment goals, but she was able to verbally provide them. Client recognized that her biggest barriers are difficulty holding herself accountable and not acting on her initial instincts for emotions. Client receptive to learning about dialectical thinking and emotional regulation skills. Client able to identify situations where dialectical thinking could benefit client including client's new experience in joining an adoptee support group. Client and therapist reviewed action urges and client identified her action urges for emotions such as fear, sadness, guilt/shame, depression, and anger. Client recognized most of her action urges are to avoid, hide, or protect herself. Client able to identify the negative consequences of these urges and reported they all feed into each other for me, so if I can stop it early it prevents the others. Client able to identify the benefits of opposite action and was willing to fill out the worksheet for homework. Risks/Concerns:: Client denies any suicidal ideations, plan, or intent as of 11/10/18. Future oriented and reports motivation to improve her mental health. Progress Toward Goals/Plan:: Client's second day of IOP, no significant changes. Client reported she did not write out her treatment goals, but she was able to verbally present them. Client?s goals included; keeping herself accountable, not jumping straight to ?my norms,? recognizing emotional urges, and retraining her brain. Client continues to report motivation to improve her mental health. Client receptive to having sessions with mom on a weekly or biweekly basis during her time in IOP to promote plan of care. Client continues to endorse difficulty concentrating, mood dysregulation, fatigue, and depressive symptoms of a reduced intensity. Will continue IOP tx to prevent decompensation, increase emotional regulation, and maintain safety. Time Stopped:: 12:57
--- NOTE | 2018-11-11 09:00 | BH.SGPN.GN ---
Behaviors/Verbalizations/Mental Status: [] Eye contact is good. Motor activity is appropriate. Appearance is casual. Speech is Appropriate. Mood is euthymic. Affect is congruent. Thoughts are linear and logical. No evidence of psychosis. Reviewed daily check in sheet and no reports of suicidal ideations or intent. Client Response/Progress/Benefit: [] Pt participated at times during group. Emotion for today is content. Noted some mental health health stating I'm proud of myself. Setting boundaries. Taking more responsibility for herself. Completing tasks rather than avoiding. Beleives that she is showing my parents that I can do it. Assertive and mkaing good decisions. No overwhelming negative thoughts, depression, or anxiety. Determined to improve since recent hospitalization. Progress noted per pt report. Benefited from group support, encouragement, and praise. Will continue in IOP to maintain safety, prevent decompensation, and improve daily functioning. Narrative Note: []
--- NOTE | 2018-11-11 10:24 | BH.SGPN.GN ---
Behaviors/Verbalizations/Mental Status: [Client alert and oriented, casually dressed and groomed, appearing to put more effort in appearance than typical baseline. Eye contact fair to good. Motor activity appropriate. Speech within normal limits. Affect constricted, mood anxious, agitated, dysthymic. Thoughts linear, logical, no signs of hallucinations or delusions. ] Client Response/Progress/Benefit: [Client receptive to session, mostly engaged in discussion and activity and providing input throughout. Client discussed the quote and indicated connecting with various points brought up by fellow participants. She did well to make personal connections with the various potential long-term impacts of not being able to cope with emotions in healthy was. Pt expressing that unmanaged emotions could lead to ?ruined relationships? or others losing trust in you. Identified shutting down or reacting on impulse as barriers to communicating emotions in stressful situations. She worked with group to discuss the potential mental health benefits of being able to communicate during stressful situations, noting increased ability for supports to understand and aid you in getting needs met. Client participated in the activity and did well to regulate her emotions while challenging self to communicate in a high stress environment. Client appeared to benefit from increasing personal awareness of how her emotions can impact communication and use of coping skills. Progress limited as client reports insight and ability to identify healthy means of coping when dysregulated, however struggles to apply skills in times of distress or to prevent sx escalation. Recommended continued focus on this area to improve use of skills on a more consistent basis. Client to continue IOP to reinforce utilization of healthy coping skills, emotion regulation, and healthy communication with supports, as well as prevent decompensation. ] Narrative Note: []
--- NOTE | 2018-11-11 11:27 | BH.SGPN.GN ---
Behaviors/Verbalizations/Mental Status: []Client alert and oriented, neatly dressed and groomed-full makeup. Eye contact good. Motor activity appropriate. Speech within normal limits. Affect congruent, mood euthymic. Thoughts linear, logical, no signs of hallucinations or delusions. Client Response/Progress/Benefit: []Client attentive and contributing to discussion. Attentive during psychoeducation on 4 zones of regulation. Client able to identify how she feels in each zone as well as how she acts in each zone. Client also able to identify coping skills she can use to support herself in each zone which included: mindfulness, music, taking breaks, getting hugs from support, talking to friends, and physical activities. Client shared she ?coming from the blue zone and getting to the green zone? today. Client stated she continues to fine herself wanting to isolate, but she has not been acting on those emotional urges. Client identified feeling ?more at peace? currently. Client reported she could benefit from spending time with family this weekend to maintain her mood. Benefited from group from increased education on zones of regulation or stages of alertness for emotions and healthy coping skills to use for each zone. Client continues to report motivation to improve her mental health. Will continue IOP tx to promote mood stability, maintain safety, and increase emotional regulation.
--- NOTE | 2018-11-11 15:18 | BH.MDN ---
Multi-Disciplinary Note - Note 30-min Individual Time Started:: 12:27 Date: 11/11/18 Purpose of session/treatment goals addressed:: The purpose of this session was to address current symptoms, coping skills, and review homework. Other topics included: boundary setting and emotional regulation skills. Eye Contact:: Good Motor Activity:: Appropriate Appearance:: Neat Speech:: Appropriate Mood:: Euthymic Affect:: Full Thoughts:: Linear, Logical, No evidence of hallucinations/delusions noted Staff Interventions:: Therapist used active listening and open-ended questions to explore client?s current symptoms, coping skills, and review homework. Therapist reinforced the benefits of practicing coping skills outside IOP setting. Therapist reviewed opposite action and emotional regulation skills and encouraged client to practice these over the weekend. Therapist discussed communication and boundary setting techniques. Therapist gave homework to keep record of how she manages strong emotions this weekend and to identify her vulnerability factors. Client Response:: Client responded well to session, open to meeting with therapist. Client reports she did not complete the opposite action worksheet for homework, but she practiced the skill. Client shared she became frustrated with her day and instead of avoiding the problem and isolating, she was able to talk through it with her father. Client and therapist discussed the benefits of practicing the coping skills and holding herself accountable by completing homework as well. Client receptive to having a family session with mother on Wednesday to review client's treatment goals and promote open communication and accountability. Client reports her mood continues to be more positive and she is trying to push herself out of her comfort zone. Client stated she plans to set boundaries with a toxic friend alcides and to spend time with her family this weekend. Client reported she has also been trying to reframe her negative thinking. Client willing to practice tracking her emotions over the weekend and her responses to those emotions. Risks/Concerns:: Client denies any suicidal ideations, plan, or intent as of 11/11/18. Client reports hope for the future and reports she has started finding george in the small things again. Progress Toward Goals/Plan:: Client continues to report motivation to improve her mental health and continues to deny suicidal ideations which demonstrates progress. Client reported she practiced opposite action yesterday, but she did not complete worksheet for homework. Client receptive to having a family session with mom on Wednesday. Client continues to endorse difficulty concentrating, mood dysregulation, fatigue, anxiety about becoming more independent, and depressive symptoms of a reduced intensity. Will continue IOP tx to prevent decompensation, increase emotional regulation, and maintain safety. Time Stopped:: 12:48
--- NOTE | 2018-11-14 09:10 | BH.SGPN.GN ---
Behaviors/Verbalizations/Mental Status: [] Eye contact is good. Motor activity is appropriate. Appearance is casual. Speech is Appropriate. Mood is anxious. Affect is congruent. Thoughts are linear and logical. No evidence of psychosis. Reviewed daily check in sheet and no reports of suicidal ideations or intent. Client Response/Progress/Benefit: [] Pt spoke when prompted. Attentive. Shared with the group some mental health wins which included returning to work and continuing with morning routine. Discussed at length the positive impact that structure and routine has provided for her mental health. Shared some responsibilities that she has been avoiding. Group challenged her on this and pt responded well. Notes that importance of her mental health and reports motivation. Managing her emotions more effectively through skills. Hopeful. Benefited from group support, encouragement, and feedback. Will continue in IOP to maintain safety, prevent decompensation, and to increase healthy coping skills. Narrative Note: []
--- NOTE | 2018-11-14 10:10 | BH.SGPN.GN ---
Behaviors/Verbalizations/Mental Status: []Client alert and oriented, neatly dressed and groomed. Eye contact fair. Motor activity appropriate. Speech within normal limits. Affect constricted, mood anxious and dysthymic. Thoughts linear, logical, no signs of hallucinations or delusions. Client Response/Progress/Benefit: []Pt provided input at times during discussion and listened attentively to others throughout session. Pt worked with the group to define anger and its causes, as well as the internal and external impacts of anger. Pt stated she is feeling angry she finds it's easier to internalize the anger of others towards herself. Group identified potential consequences of unhealthy anger include: losing relationships, guilt, increased stress, resentment, lose job, depression and anxiety. Pt identified underlying factors of her anger include: frustration, fear, rejection, feeling sad, being hurt by others, stress, other peoples ignorance, hungry, lonely tired, and anxiety. Benefited from group by increasing awareness of the negative impacts of unhealthy anger and underlying factors that contribute to her personal anger. Progress noted with pt's increased self-awareness of how her emotions impact her mental health. Continued IOP tx to decrease depression, improve emotion regulation skills, and prevent decompensation. Narrative Note: []
--- NOTE | 2018-11-14 11:07 | BH.SGPN.GN ---
Behaviors/Verbalizations/Mental Status: [Eye contact is good. Motor activity appropriate. Appearance is causal, grooming attended to. Speech is appropriate rate and tone. Mood is euthymic, positive. Affect is congruent to mood. Thoughts are linear and logical. No evidence of psychosis. ] Client Response/Progress/Benefit: [Pt remained an active participant throughout, AEB engagement in activity and providing some input to discussion potions of session. Pt did well to participate in the group activity and incorporate anger management/emotion regulation skills in order to do so. Able to challenge herself to continue to participate despite urges to quit when becoming frustrated and was receptive of encouragement from peers. Worked with the group to process and identify the various barriers faced in the activity and skills used to successfully complete the task at hand without becoming dysregulated or angry. Pt identified barriers impacting own ability to better manage anger related symptoms in daily life which included: feeling out of control, fear, all or nothing thoughts, shutting down or lashing out, and negative self-talk. Pt appeared to benefit from discussion regarding potential benefits of anger and brainstorming with the group potential strategies for emotional release or harnessing anger in healthy ways. Pt identified plans to begin taking time for mindfulness and deep breathing before responding as technique to improve coping with anger related sx. Recommended continued IOP txt to reduce mental health sx, continue to promote skill application, and prevent decompensation.] Narrative Note: []
--- NOTE | 2018-11-14 13:08 | BH.MDN_ITS ---
Multi-Disciplinary Note - Note Family Time Started:: 08:10 Date: 11/14/18 Purpose of session/treatment goals addressed:: The purpose of this session was to engage client's mother in client's treatment by addressing symptoms, application of coping skills, and strategies to promote trust. Another purpose was to improve communication and emotional regulation. Eye Contact:: Good Motor Activity:: Appropriate Appearance:: Neat Speech:: Appropriate Mood:: Euthymic Affect:: Congruent Thoughts:: Linear, Logical, No evidence of hallucinations/delusions noted Staff Interventions:: Therapist used open-ended questions and active listening to gather information on client's, and her mother?s, expectations for the session. Therapist encouraged open communication and provided clarification when necessary. Therapist provided insight to client?s treatment goals and DBT skills client is learning. Therapist provided validation and offered strategies to promote trust in the mother/daughter relationship. Therapist engaged ongoing communication, boundary setting, and emotional regulation. Client Response:: Client responded well to session, receptive to meeting with therapist and mother. Client able to identify what she has been currently working on during individual sessions, but she reported she did not finish homework. Client stated she spent time with family over the weekend and tried to use opposite action. Client's mother reinforced the importance of using opposite action and emotional regulation skills. Client's mother reported client's mood has improved and her motivation has increased as well since discharging from the hospital. However, client's mother expressed concern of client's ongoing motivation. Client acknowledges she has a history of lack of follow through, but client reports she is more invested this time. Client and her mother reported some issues with client seeking validation for making changes. Client able to recognize the costs and benefits of seeking validation and acknowledged the importance of maintaining motivation and honesty. Client and her mother discussed client?s involvement in her adoptee group and the lessons client can learn from the support there. Client?s mother reported belief client could benefit from sharing her story of overcoming adversity. Client willing to practice emotional regulation skills this week. Risks/Concerns:: Client denies any suicidal ideations, plan, or intent as of 11/14/18. Future oriented throughout session. Progress Toward Goals/Plan:: Client continues to report motivation to improve her mental health and continues to deny suicidal ideations which demonstrates progress. Client self-reports lack of follow through with her homework, but client reports she has been trying to engage in more opposite action. Client?s mother mentioned concerns of lack of follow through moving forward. Client recognizes she has a history of inconsistent follow through and unrealistic expectations at times. Client continues to endorse difficulty concentrating, mood dysregulation, fatigue, anxiety about becoming more independent, and depressive symptoms of a reduced intensity. Will continue IOP tx to prevent dec ompensation, increase emotional regulation, and maintain safety. Time Stopped:: 09:03
--- NOTE | 2018-11-15 09:00 | BH.SGPN.GN ---
Behaviors/Verbalizations/Mental Status: [] Eye contact is good. Motor activity is appropriate. Appearance is neat. Speech is Appropriate. Mood is euthymic. Affect is flat. Thoughts are linear and logical. No evidence of psychosis. Reviewed daily check in sheet and no reports of suicidal ideations or intent. Client Response/Progress/Benefit: [] Pt participated at times during group discussion. Daily symptom tracker notes 0/5 for depression, anxiety, panic, hopelessness, and agitation. Emotion reported pt pt is funky .. not quite myself. Notes that she is stressed with people. Shared her history of conflicted relationships and her role in them. Discussed hx of attachment issues and how this impacts her MH. Insight and awareness. Progress noted per pt report. Benefited from group support, encouragement, and feedback. Will continue in IOP to prevent decompensation and to provided support. Narrative Note: []
--- NOTE | 2018-11-15 10:10 | BH.SGPN.GN ---
Behaviors/Verbalizations/Mental Status: [] Eye contact is good. Motor activity is appropriate. Appearance is casual. Speech is Appropriate. Mood is euthymic. Affect is full. Thoughts are linear and logical. No evidence of psychosis. Client Response/Progress/Benefit: [] Pt was an active participant in group discussion and activity. Contributed to discussion on quote of the day as she shared a great deal about how self-care has been a positive force in her life Group worked together to come up with common negative forces in thief lives which can hold them back from growth. There included; toxic relationships, negative thoughts, cognitive distortions, fear of failure, anger, and unhealthy coping skills (alcohol, sleeping to escape, isolation). Group then worked together to identify common positive forces which help us grow. Theses included; Healthy coping skills, positive support, self-care, patience, realistic and positive thinking, and following treatment suggestions. Pt was attentive during psychoeducation on the importance of utilizing many aspects of positive forces to help one grow. Benefited from group with increased insight and awareness on the impact of negative and positive forces on mental wellness. Narrative Note: []
--- NOTE | 2018-11-15 11:10 | BH.SGPN.GN ---
Behaviors/Verbalizations/Mental Status: []Client alert and oriented, neatly dressed and groomed. Eye contact fair. Motor activity appropriate. Speech within normal limits. Affect constricted and mood dysthymic. Thoughts linear, logical, no signs of hallucinations or delusions. Client Response/Progress/Benefit: []Client provided input at times during discussion, listened attentively to peers. Client completed worksheet identifying her positive and negative forces in life. Client identified positive forces that aid in progressing toward mental health goals include: family, determination to get better, being able to see a future for self, cooler weather is motivating, and current job. Client indicated negative forces that prevent progress include: needing a new job, feeling helpless, anxiety, fear, and negative thought patterns. Client reported she believes she is moving forward towards her goals. Identified family and determination to be most helpful positive forces. Client seemed to benefit from increased awareness of personal positive and negative forces in life and impact they have on mental health and wellness. Client to continue IOP level of care to maintain gains, continue to challenge distorted thought patterns and prevent decompensation. Narrative Note: []
--- NOTE | 2018-11-16 09:00 | BH.SGPN.GN ---
Behaviors/Verbalizations/Mental Status: [] Eye contact is good. Motor activity is appropriate. Appearance is casual. Speech is Appropriate. Mood is depressed. Affect is flat. Thoughts are linear and logical. No evidence of psychosis. Reviewed daily check in sheet and no reports of suicidal ideations or intent. Client Response/Progress/Benefit: [] Pt participated at time during discussion. Daily symptom tracker notes no concerns with anxiety, panic, agitation, or hopelessness. She is planning to start a new job next week stating I'm determined to get stuff done. Admits to some periods of depression since yesterday in which she had fleeting suicidal thoughts. She was proactive in addressing the thoughts, did not avoid, and moved pass them. She understands that these will occur at times. Able to reframe and utilizing internal and external coping skills. 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 Progress noted per pt report. Benefited from group support, encouragement, and feedback. Will continue in IOP to maintain gains and prevent decompensation. Narrative Note: []
--- NOTE | 2018-11-16 10:16 | BH.SGPN.GN ---
Behaviors/Verbalizations/Mental Status: []Client alert and oriented, casually dressed and groomed. Eye contact good. Motor activity appropriate. Speech within normal limits. Affect congruent, mood euthymic. Thoughts linear, logical, no signs of hallucinations or delusions. Client Response/Progress/Benefit: []Pt mostly passive participant AEB pt providing minimal input throughout session, however engaged in group activity and listened attentively to peers. Pt did well to remain attentive as fellow participants discussed connections between activity and barriers/supports to development of a resilient lifestyle. Pt benefitted from brainstorming benefits of being resilient which included: stronger than before, improving ability to cope, builds confidence and self-esteem, and sense of accomplishment. Pt connected with others that it can be exhausting to be resilient which results in not wanting to keep trying. Pt progressing with increased application of skills outside treatment environment. Recommend continued IOP tx to prevent decompensation, promote healthy change behaviors, as well as continue to identify and challenge distorted thought patterns. Narrative Note: []
--- NOTE | 2018-11-16 11:17 | BH.SGPN.GN ---
Behaviors/Verbalizations/Mental Status: [Eye contact fair to good, often looking down and drawing throughout discussion. Motor activity is appropriate. Appearance is casual and pt grooming appropriate. Speech an appropriate rate and tone. Mood is euthymic. Affect is congruent with mood. Thoughts are linear and logical, at times struggling to maintain focus. No evidence of psychosis.] Client Response/Progress/Benefit: [Pt remained semi-engaged throughout session, at times becoming distracted by herself and was coloring which appeared to detract focus, while on other occasions she provided input to discussion. She did well with engaging when prompted, however appeared to struggle with motivating herself to engage independently. Pt provided limited input during group discussion on the various factors for building resilience and often made jokes or sarcastic remarks when working within the small groups. However, pt was receptive of redirection and returned to topic at hand when prompted. She noted that by working to ?take positive baby steps each day? we can continue to develop the resilience factor of moving towards goals. Pt benefitted from reviewing strategies for developing and promoting a resilient lifestyle and reflecting upon how this topic may relate to her own mental health progress. Identified that focusing on improving her use of the resilience factor of ?nurturing a positive view of self? would aide in further developing her own resilience by allowing for her to no longer allow her past trauma to define her. Expressed plans to begin working on doing so by practicing saying ?thank you? when given a complement rather than disqualifying them. Pt progress limited due to variable engagement which may impact her ability to internalize materials discussed. Recommended continued IOP tx to prevent decompensation, maintain safety, and continue to promote healthy change behaviors. ] Narrative Note: []
--- NOTE | 2018-11-17 09:05 | BH.SGPN.GN ---
Behaviors/Verbalizations/Mental Status: [] Eye contact is good. Motor activity is appropriate. Appearance is casual. Speech is Appropriate. Mood is . Affect is congruent. Thoughts are linear and logical. No evidence of psychosis. Reviewed daily check in sheet and no reports of suicidal ideations or intent. Client Response/Progress/Benefit: [] Pt participated at times during the group discussion. Provided appropriate feedback. Shared with the group that she has gotten her old job back which is a positive. Notes that she is excited. Superficial check-in however reports that she remains motivated and determined. Currently in good spirits. Will continue in IOP to maintain safety, prevent decompensation, and provided support. Benefited from group support and encouragement. Narrative Note: []
--- NOTE | 2018-11-17 10:11 | BH.SGPN.GN ---
Behaviors/Verbalizations/Mental Status: [Eye contact is good. Motor activity appropriate. Appearance is causal, grooming appropriate. Speech is appropriate rate and tone. Mood is euthymic. Affect is congruent to mood. Thoughts are linear and logical. No evidence of psychosis. ] Client Response/Progress/Benefit: [Pt was an active participant in group activity and discussion, displaying progress in overall ability to engage in discussion as well as make personal connections with materials discussed. Pt shared insight on quote of the day and noted ?I wish it were that easy? in response to benefits of celebrating each small progression towards goal. Went on to discuss that often setbacks can result in forgetting progress and lead to ?beating yourself up?. Pt worked together with group to define goals and identify the purpose of developing goals. Pt indicated that to her goals are ?something you want to achieve? and the benefits include increased determination and no longer feeling ?stuck?. She did well to remain engaged throughout and additionally worked with group to identify barriers to setting and accomplishing goals. Pt identified potential barriers as comparing your progress to that of others as well as impatience. Pt benefited from increase awareness of goal-setting methods and education on developing SMART goals. Recommended to continue in IOP tx to prevent decompensation, maintain safety, continue todecrease depressive sx, and promote healthy change behaviors.] Narrative Note: []
--- NOTE | 2018-11-17 11:15 | BH.SGPN.GN ---
Behaviors/Verbalizations/Mental Status: []Eye contact is good. Motor activity is appropriate. Appearance is casual. Grooming appropriate. Speech is Appropriate. Mood is euthymic. Affect is congruent. Thoughts are linear and logical. No evidence of psychosis. Client Response/Progress/Benefit: []Pt attentive throughout, contributed input to discussion. Pt able to connect the importance of setting realistic goals so don't set self up for failure. Engaged in creating own mental health SMART goal and seemed to benefit from developing ways to overcome potential barriers to reaching this goal. Pt identified her SMART goal is to walk for 15 minutes every day. Pt stated this goal will benefit her mental health by getting out of the house and improve her emotions. Pt identified potential barriers to reaching goal to include: apathy, no time, and not wanting to walk alone. Pt able to identify several solutions for each potential barrier. Pt stated she will use opposite action, making this goal a priority, and taking her dog as solutions to overcome barriers. Progress noted with increased positive thinking and focusing on what she can do to improve mental health. Pt to continue IOP to continue to use healthy coping, identify and challenge distorted thoughts, and prevent decompensation. Narrative Note: []
--- NOTE | 2018-11-18 09:05 | BH.SGPN.GN ---
Behaviors/Verbalizations/Mental Status: [] Eye contact is good. Motor activity is appropriate. Appearance is casual. Speech is Appropriate. Mood is depressed. Affect is flat. Thoughts are linear and logical. No evidence of psychosis. Reviewed daily check in sheet and no reports of suicidal ideations or intent. Client Response/Progress/Benefit: [] Pt participated at time during group discussion. Pt states I'm here. Notes that she woke up late this AM and while getting here was challenging she notes that she made a commitment and she is going to follow through. Starting work next week which is a mental health win. Stressor is related to starting to smoke. Not sure why she has picked up this habit. Overall superficial check-in. Denies any overwhelming emotions. Progress noted. Benefited from group encouragement, support, and feedback. Will continue in IOP to maintain safety, increase coping skills, and prevent decompensation. Narrative Note: []
--- NOTE | 2018-11-18 10:11 | BH.SGPN.GN ---
Behaviors/Verbalizations/Mental Status: []Eye contact is good. Motor activity is appropriate. Appearance is casual. Grooming is appropriate. Speech is Appropriate. Mood is dysthymic. Affect is congruent. Thoughts are linear and logical. No evidence of psychosis. Client Response/Progress/Benefit: []Pt responded well to session AEB pt listening attentively to others and contributing to discussion at times. During discussion pt stated if she has a negative perspective then she magnifies her current stressors to appear larger than in reality. Pt connected with peers during discussion about common unhealthy skills that are often used to manage stressors and mental health. Pt stated she often neo with stress by pushing others away and not asking for help. Pt reported the environment one is raised in can impact how one neo in life. Pt seemed to benefit from increased awareness of benefits of using healthy coping skills and understanding importance of having balance between internal and external coping skills. Pt to continue IOP level of care to improve emotional regulation, increase utilization of healthy coping skills, and prevent decompensation. Narrative Note: []
== END 2018-11-19 23:59 ==
LOC: BHIOP 09:00
PROVIDERS: Family Provider Student in an Organized Health Care Education/Training Program; PCP Student in an Organized Health Care Education/Training Program; Referring Provider Psychiatry & Neurology Psychiatry; Visit Provider Psychiatry & Neurology Psychiatry
DX: F33.2 Major depressive disorder, recurrent severe without psychotic features (principal); F41.1 Generalized anxiety disorder
CPT/HCPCS: 90792; H0035; H2012; H2020; 90832; 90834; 90847

== ENCOUNTER 2018-11-24 09:00 | Outpatient (RCR) | payer MEDICAID, SELFPAY ==
[2018-11-01 13:40] VITALS: BMI 28.8
--- NOTE | 2018-11-24 10:10 | BH.SGPN.GN ---
Behaviors/Verbalizations/Mental Status: []Client alert and oriented, casually dressed and groomed. Eye contact good. Motor activity appropriate. Speech within normal limits. Affect constricted, mood dysthymic. Thoughts linear, logical, no signs of hallucinations or delusions. Client Response/Progress/Benefit: []Client active participant as shown by client?s contribution to discussion and helpful insight. Client agreed with peers that self-care is important because it is challenging to care for others if don't care for self. Client participated in the discussion of the common myths about self-care including self-care is selfish, self indulgent, pampering self, and always fun. Client stated it can be hard to make time for self-care because other responsibilities become the priority. Client engaged in activity and related with others comments that it's important to make . Client seemed to benefit from increased awareness of the importance of self-care. Client showing progress as shown by her report of utilization of coping skills and ability to challenge distorted thoughts. Will continue tx to maintain gains, continue to use healthy coping skills, and prevent decompensation. Narrative Note: []
--- NOTE | 2018-11-24 17:42 | BH.MDN ---
Multi-Disciplinary Note - Note 30-min Individual Time Started:: 09:25 Date: 11/24/18 Purpose of session/treatment goals addressed:: Purpose of session was to assess pt's current symptoms and stressors. Other topics include: reviewing use of healthy coping, challenging distorted thoughts, and discussing strategies to help pt improve motivation. Eye Contact:: Fair Motor Activity:: Appropriate Appearance:: Neat Speech:: Appropriate Mood:: Depressed Affect:: Constricted Thoughts:: Linear, Logical, No evidence of hallucinations/delusions noted Staff Interventions:: Therapist used open ended questions to elicit pt's current symptoms and stressors. Therapist reviewed pt's progress with applying healthy coping skills. Therapist assisted pt with challenging distorted thoughts. Discussed strateiges to increase motivation. Provided support by using active listening and validating emotions. Client Response:: Pt reported she had her first day at her new job yesterday. Pt stated the day was fine, but did have thoughts of not wanting to be there. Pt stated she was frsutrated at work when customers were rude to her. Pt stated she was able to challenge negative thoughts she has at work. Pt stated overall her weekend had been going well until her little brother made a poor choice which caused conflict in the home. Pt stated when her mom got home from a weekend trip pt was disrespectful at times. Pt reported after thinking about the conflict with her mom she chose to apologize to her mom for how she acted. Pt stated in the past she wouldn't have gone to her mom first to take responsibility for her actions. Pt reported overall her Risks/Concerns:: Denies current suicidal ideation, plan or intention to date. Progress Toward Goals/Plan:: Progress noted with pt taking responsibility for her behaviors and apologizing to her mom, which shows increased insight. Pt starting to struggle with decreased motivation and determination to use her skills consistently. Pt has hx of stopping use of her skills and returning to unhealthy ways of coping. Pt has awareness of her self-sabotage behaviors, but continues to engage in those behaviors. Pt to continue IOP level of care to increase consistent use of healthy coping, continue to challenge distorted thoughts and prevent decompensation. Time Stopped:: 10:00
--- NOTE | 2018-11-25 09:00 | BH.SGPN.GN ---
Behaviors/Verbalizations/Mental Status: [] Eye contact is good. Motor activity is appropriate. Appearance is casual. Speech is Appropriate. Mood is depressed. Affect is flat. Thoughts are linear and logical. No evidence of psychosis. Reviewed daily check in sheet and no reports of suicidal ideations or intent. Client Response/Progress/Benefit: [] Pt participated when prompted. Notes regression stating she feels dl today. Decreased focus and concentration. Identified a trigger to depression and passive thoughts of . Did not share this trigger with the group however talked at length regarding how it impacted her. She is notes that she is able to combat and challenge negative thoughts. Reports that she is still motivated and determined however notes she is less today than she was in the past couple weeks. Increase in responsibilities as well with starting new job. No progress noted. Benefited from group support, encouragement, and feedback. Will continue in IOP to maintain safety, prevent decompensation, and increase health skills. Narrative Note: []
--- NOTE | 2018-11-25 10:16 | BH.SGPN.GN ---
Behaviors/Verbalizations/Mental Status: [Client alert and oriented, casually dressed and appropriate grooming. Eye contact fair, often looking down at papers she was coloring. Motor activity appropriate. Speech within normal limits. Affect congruent, mood dysthymic, distracted. Thoughts linear, logical, no signs of hallucinations or delusions] Client Response/Progress/Benefit: [Pt semi-engaged in group however struggled to actively participate in discussion as she was coloring and focus appeared distracted, willing to complete worksheet activity. When attentive, pt connected with the group topic of Crisis and did well to work together with group to define crisis. Connected with discussion on how small setbacks can develop into a crisis if coping skills are unhealthy. Pt shared that her common crisis response is impulsivity which has resulted in escalating the crisis in the past. Group identified warning signs for crisis which included; increased sleep, irritability, decreased appetite, and suicidal thoughts. Pt completed the personal warning signs worksheet and identified crisis warning signs to include; isolation, irritability, and not reaching out to supports. Benefited from group by increasing awareness of crisis and personal warning signs. Progress continues to be limited as pt continues to struggle with consistent engagement and application of skills. Will continue IOP to promote change behaviors, improve distress tolerance and emotion regulation skills, as well as prevent decompensation.?] Narrative Note: []
--- NOTE | 2018-11-28 09:02 | BH.SGPN.GN ---
Behaviors/Verbalizations/Mental Status: [Eye contact is fair, looking at drawings in hand for majority of discussion. Motor activity is appropriate. Appearance is casual and grooming appropriate. Speech is WNL. Mood is dysthymic, stressed. Affect is congruent. Thoughts are linear and logical. No evidence of psychosis. Reviewed daily check in sheet and no reports of suicidal ideations or intent.] Client Response/Progress/Benefit: [Pt receptive of session, engaged in discussion and providing relevant feedback to fellow participants. Pt reports that although she is able to recognize what skills are important for her to continue to make progress with her mental health, she is struggling with active application. Reports I'm having a hard time with wins. I feel like I'm just doing what I've always done and pretending that things didn't happen. She did not elaborate further on what she feels she has been pretending didn't happen but went on to discuss being frustrated with her current schedule and the expectations others have of her. Described feeling she does not have time to set aside for self-care but knows I can't not do it. Pt struggled to identify small self-care ideas that take little time or areas she could cut back in to open up her schedule for more self-care. Shared knowing she may be setting herself up for a setback if she does not make self-care a priority but vocalized ambivalence about doing so at this time. Appeared to benefit from supportive and structured environment of group as well as being gently challenged on her perspective and potential impact avoidance behaviors may have. Progress limited due to pt self-reports of not making time to utilize self-care skills. Recommended continued IOP tx to prevent decompensation, continue to promote healthy change behaviors, and increase mood stability. ] Narrative Note: []
--- NOTE | 2018-11-28 10:14 | BH.SGPN.GN ---
Behaviors/Verbalizations/Mental Status: []Client alert and oriented, casual appearance. Eye contact fair. Motor activity appropriate. Speech within normal limits. Affect constricted, mood dysthymic. Thoughts linear, logical, no signs of hallucinations or delusions. Client Response/Progress/Benefit: []Pt was an active participant in group discussion. Processed quote of the day with peers. Group discussed the MH benefits to having open and clear communication with support and providers. Group also discussed the barriers that tend to impact clear and open communication which include: depression, anxiety, fear, not trusting others, feeling like others don't understand you, shutting down, and unmanaged emotions. Pt was attentive during psycho-education on communications styles (aggressive, passive, passive-aggressive, and assertive). Also provided input on the pros and cons to each communication style. Pt stated I can be really busch and passive-aggressive towards others as a way to communicate how I feel. Pt reported she tends to be passive-aggressive towards others that have hurt her feelings. Pt reported she knows being passive-aggressive is not an effective way to communicate, but does it because it helps her express her emotions. Pt reported she tends to be passive as well by holding in her emotions and thoughts. Pt seemed to benefit from increased insight on how the way she communicates impacts her mental health. Pt to continue IOP level of care to increase generalization of healthy coping skills and prevent decompensation. Narrative Note: []
--- NOTE | 2018-11-29 09:04 | BH.SGPN.GN ---
Behaviors/Verbalizations/Mental Status: []Client alert and oriented, casually dressed and groomed. Eye contact good. Motor activity appropriate. Speech within normal limits. Affect constricted, mood depressed. Thoughts linear, logical, no signs of hallucinations or delusions. Reviewed client?s symptom tracker, no signs of suicidal ideation, plan, or intent as of today. Client Response/Progress/Benefit: []Pt was an active participant in group discussion, providing input and openly processing with the group. Emotion for today is content. Pt reported her current stressor is finding out her brother and [id number] are getting a divorce. Pt stated she is really close to her [id number] and is anxious she will lose this connection after the divorce. Pt noted progress as choosing to take off work today because she has been working everyday and believes she is putting her self-care on the back burner. Pt stated she is working a lot because needs money so she can move out on her own and be ore independent, but if works too much then will stop caring for her mental health. Progress hindered by pt lacking insight that she is engaging in self-sabotage behavior with working everyday, not advocating for herself at work, and loss of motivation to apply skills outside treatment environment. Continued IOP tx recommended to improve emotional regulation, prevent decompensation, and identify and challenge negative thought patterns. Narrative Note: []
--- NOTE | 2018-11-29 11:13 | BH.SGPN.GN ---
Behaviors/Verbalizations/Mental Status: []Client alert and oriented, casually dressed and groomed- no makeup today. Eye contact good. Motor activity appropriate. Speech within normal limits. Affect congruent, mood irritable. Thoughts linear, logical, no signs of hallucinations or delusions. Client Response/Progress/Benefit: []Client responded well to session, providing to discussion and engaged in activity.? Client identified current barriers keeping her from desired reality included: not having time for self-care and feeling like she should be doing more important things than focusing on her mental health. Client worked cooperatively?to identify strategies to overcome various barriers which included: opposite action, reminding self ?the past is the past,? journaling, having a self-care routine, challenging distortions, reaching out to supports, and looking for evidence against negative thoughts. Client reported she plans to challenge her perspective to help overcome personal barriers to desired reality. Client stated instead of looking at her situation as not having time for self-care she can look at ?what can I cut back on.?? Client seemed to benefit from identifying strategies she will use to overcome personal barriers and using in the moment problem-solving. Client to continue IOP level of care as she currently reports low motivation and lack of energy which is impacting her application of coping skills per her report.
--- NOTE | 2018-11-29 14:04 | BH.MDN ---
Multi-Disciplinary Note - Note 45-min Individual Time Started:: 10:30 Date: 11/29/18 Purpose of session/treatment goals addressed:: The purpose of this session was to address current symptoms, stressors, and barriers. Another goal was to identify healthy coping skills to improve emotional regulation. Other topics included: self-sabotage, instant gratification, and opposite action. Eye Contact:: Good Motor Activity:: Appropriate Appearance:: Casual - no makeup today Speech:: Appropriate Mood:: Anxious Affect:: Flat - tearful Thoughts:: Linear, Logical, No evidence of hallucinations/delusions noted Staff Interventions:: Therapist used active listening and open-ended questions to explore client's symptoms, stressors, and barriers to implementing coping skills. Therapist used cognitive restructuring techniques and dialectical thinking to help client catch and reframe distorted thinking. Therapist gently challenged client on self-sabotaging behaviors and helped client explore the costs and benefits of engaging in self-sabotage. Therapist discussed how psychosocial factors impact impulsiveness and instant gratification seeking. Therapist encouraged use of opposite action to prevent engaging in impulsive, maladaptive behaviors. Therapist gave client homework to practice opposite action. Client Response:: Client entered session, alert and oriented. Willing to meet with therapist. Client shared she is feeling tired and burnout which led client to call off work today. Client reported I just need to have a rest day and shared belief this will help client feel better. Client stated, I'm not doing things for me right now and she reported feeling forced to engage in therapy. Client acknowledged that her motivation to move towards her goals and maintain positive changes has begun to lessen. Client receptive to gentle challenging from therapist on the consequences of giving in to client's low motivation and negative thinking. Client recognized that she has a history of lack of follow through and she was able identify the consequences of continuing down this path. Consequences included: increased depression, relationship issues with mom, giving into unhelpful urges, less independence, and isolation. Client became tearful and shared I'm tired and that her emotion action urge is to shut down. Able to recognize that shutting down will only reinforce low motivation and depressive symptoms. Client reported she can benefit from not isolating today or going home to sleep. Rather, client can benefit from positively pushing herself to engage with others and be present. Client reported willingness to make time for self-care by waking up earlier to do her hair and makeup. Client stated she has been ignoring self-care, even though it makes me feel better. Willing to practice opposite action and self-care for homework. Risks/Concerns:: Client reports I'm not depressed, I'm just tired. Client denies any suicidal ideations, plan, or intent as of 11/29/18. Future oriented throughout session. Progress Toward Goals/Plan:: Client reported increased motivation to improve her mental health and symptom management during previous sessions. However, this week, client reports low motivation to move forward in progress and shared she feels ?tired.? Client recognizes that when she has felt this way in the past, she became more vulnerable to pitfalls and setbacks. Client and therapist discussed consequences of not changing her behaviors and choosing a different path. Client currently endorses distorted thinking, apathy, low motivation. Progress variable as client has shown some strides towards progress, but she continues to demonstrate inconsistent application of coping skills. Client to continue IOP to prevent decompensation and promote use of healthy coping skills. Time Stopped:: 11:17
--- NOTE | 2018-12-01 10:05 | BH.SGPN.GN ---
Behaviors/Verbalizations/Mental Status: []Client alert and oriented, casual in appearance. Eye contact fair. Motor activity appropriate. Speech within normal limits. Affect constricted, mood dysthymic. Thoughts linear, logical, no signs of hallucinations or delusions. Client Response/Progress/Benefit: []Client attentive and engaged throughout session. Worked together with the group to define and identify differences between internal and external conflict. Group identified and discussed consequences of ignoring conflict which included: increased depression, unresolved anger, increased anxiety, complacency, resentment, and conflict worsening. Client stated when she ignores conflict it results in unresolved anger. Client worked with group to identify barriers to addressing conflict which included: worrying about other person, pride, fear, being hard to face conflict, and negative thinking. Attentive during psychoeducation on different conflict styles such as avoiding, accommodating, competing, and collaborative. The group began to review benefits and drawbacks to each style and client provided insight to discussion. Benefited as she was able to identify and define conflict as well as increase awareness of how conflict style impacts mental health. Progress stagnant as evidenced by client having awareness of unhealthy skills, but continues to struggle with application of skills. Will continue IOP tx to prevent decompensation of depressive symptoms and increase consistent healthy coping skills. Narrative Note: []
--- NOTE | 2018-12-01 11:05 | BH.SGPN.GN ---
Behaviors/Verbalizations/Mental Status: []Client alert and oriented, neatly dressed and groomed-makeup done. Eye contact good. Motor activity appropriate. Speech within normal limits. Affect full, mood euthymic. Thoughts linear, logical, no signs of hallucinations or delusions. Client Response/Progress/Benefit: []Client responded well to session, providing to discussion and activity. Contributed to ongoing discussion of the different conflict resolution styles, drawbacks, and appropriate times of use. Client indicated connecting most with the ?competing? approach to conflict at work and ?avoiding? approach at home.? Client reported these approaches to conflict have benefits, but it has also led to more conflict, resentment, and tension in her life. Client engaged in the activity and did well to practice using a collaborative approach as shown by her willingness to compromise with peers even when she had different ideas. Client appeared to benefit from increasing awareness of her personal conflict resolution style and from learning ways to increase healthy conflict resolution. Progress noted as client followed through with her self-care goal from her individual session. However, client continues to report ongoing issues with motivation and negative thinking. Will continue IOP tx to promote utilization of emotional regulation skills and reduce impulsive behaviors.?
--- NOTE | 2018-12-02 09:39 | BH.COMM ---
Communication Note - Communication with Client Communication Note: Client called and canceled her scheduled IOP sessions today. Client reported nothing is wrong I just want to relax. Client plans to attend next week and was willing to have a family session.
--- NOTE | 2018-12-06 09:10 | BH.SGPN.GN ---
Behaviors/Verbalizations/Mental Status: [] Eye contact is good. Motor activity is appropriate. Appearance is neat. Speech is Appropriate. Mood is depressed. Affect is flat. Thoughts are linear and logical. No evidence of psychosis. Reviewed daily check in sheet and no reports of suicidal ideations or intent. Client Response/Progress/Benefit: [] Pt participated at times during group discussion. Daily symptom tracker indicates 1/5 for anxiety. Did not identify any hopelessness however her check-in involved significant depression, hopelessness, and passive SI. Pt shared that her parents are forcing her to move out of the house which is causing some anger, resentment, and depression. Pt states I don't feel like I belong in the house. States Life is kicking me now. Feels that she doesn't have time for anything. Other concern is that a stranger reached out to her stating that he got her number form her bio-mother. This was a significant trigger and casued anger and suicidal ideations. Regression noted. Psychosocial stressors. Benefited from group support, encouragement, and feedback. Will continue in IOP to maintain safety, prevent decompensation, and increase healthy coping. Narrative Note: []
--- NOTE | 2018-12-06 10:10 | BH.SGPN.GN ---
Behaviors/Verbalizations/Mental Status: []Client alert and oriented, casual in appearance. Eye contact fair. Motor activity appropriate. Speech within normal limits. Affect constricted, mood dysthymic. Thoughts linear, logical, no signs of hallucinations or delusions. Client Response/Progress/Benefit: []Client engaged during group discussion AEB pt providing limited input, however did appear to listen attentively to others comments. Group identified benefits of social support as gaining a different perspective, provide validation, help recognize warning signs, provide additional insight, and help us see personal strengths. Client stated she has pushed healthy support away from her for so long that she has lost many of her healthy supports. Client reported she recognizes if she doesn't increase her positive supports it will lead to increased poor decisions and unhealthy coping. Client was engaged during the group activity and showed increased engagement as shown by client communicating with peers and cooperating throughout. Appeared to benefit from gaining awareness of barriers that keep people from seeking social support. Client to continue IOP to increase consistent application of healthy coping skills and prevent decompensation. Narrative Note: []
--- NOTE | 2018-12-06 12:54 | BH.COMM ---
Communication Note - Communication with Client Communication Note: Therapist followed up with client to further assess suicidal ideation due to client's daily symptom tracker scores. Client reported she has been having passive wishes of more recently due to feeling overwhelmed, but she denies any active suicidal ideations, plan, or intent as of 12/06/18. Client shared they are like pop up adds, but I won't to do anything. Client reports ability to maintain safety today and plans to go to work this afternoon.
--- NOTE | 2018-12-07 10:13 | BH.MDN ---
Multi-Disciplinary Note - Note 45-min Individual Time Started:: 08:04 Date: 12/07/18 Purpose of session/treatment goals addressed:: The purpose of this session was to address current symptoms, stressors, and barriers. Another goal was to identify healthy coping skills to improve emotional regulation. Other topics included: communication, trigger management, and family sessions. Eye Contact:: Good Motor Activity:: Appropriate Appearance:: Neat Speech:: Appropriate Mood:: Euthymic Affect:: Congruent Thoughts:: Linear, Logical, No evidence of hallucinations/delusions noted Staff Interventions:: Therapist used active listening and open-ended questions to explore client's symptoms, stressors, and barriers to implementing coping skills. Therapist used cognitive restructuring techniques and dialectical thinking to help client catch and reframe distorted thinking. Therapist gently challenged client on distorted thoughts preventing communication. Therapist helped client process a recent trauma trigger and identify healthy coping skills to manage the trigger. Therapist encouraged use of opposite action to prevent engaging in impulsive, maladaptive behaviors. Client Response:: Client responded well to session, open to meeting with therapist. Client shared last week she was not feeling motivated which led to more distorted thinking. Client able to recognize that when her thinking is distorted, she makes unhealthy choices and reverts to lying. Client shared she was able to prevent herself from falling back into old patterns by talking with her mother. Client stated she was honest with her mother about missing IOP, having passive SI, and feeling sad. Client reported the conversation went well and it helped client feel better. Client also shared she took her medication consistently this weekend which immediately made me think different. Client reported she was able to take a step back and challenge her perspective and dismiss her passive suicidal ideations. Client has a family session this week and client identified topics she would like to discuss with her parents. Client would like to process her recent trigger with her biological mother, her conflicting feelings about her biological mother, and progress. Client and therapist processed client's conflicting feelings and normalized client's automatic thoughts about her biological mother. Client able to identify strategies to help client cope when triggers come up in the future including deep breathing, talking with her parents, and self-talk. Risks/Concerns:: Client denies any suicidal ideations, plan, or intent as of 12/07/18. Client shared she had some passive suicidal ideations yesterday, but client stated they were fleeting (lasting a few minutes) and client was able to control the thoughts. Client was future oriented throughout session. Progress Toward Goals/Plan:: Client is demonstrating progress towards her treatment goals as shown by her self-report of improved mood stability this week and increased motivation. Client stated she had not been taking her medication consistently, but now she is which client recognizes helps her ?see a different perspective.? Client continues to endorse distorted thinking, apathy, anxiety, and impulsive urges. Progress continues to vary depending on client?s motivation levels as evidenced by client?s self-report and application of coping skills. Client to continue IOP to promote emotional regulation, maintain safety, and promote use of healthy coping skills. Time Stopped:: 08:45
--- NOTE | 2018-12-08 09:05 | BH.SGPN.GN ---
Behaviors/Verbalizations/Mental Status: []Client alert and oriented, neatly dressed and groomed. Eye contact good. Motor activity appropriate. Speech within normal limits. Affect congruent, mood euthymic. Thoughts linear, logical, no signs of hallucinations or delusions. Reviewed client?s symptom tracker, no risk for suicidal ideation, plan, or intent as of 12/08/18. Client Response/Progress/Benefit: []Client responded well to session, attentive and engaged throughout. Client reports feeling ?tired and calm? today. Client shared using coping skills this morning which included deep breathing and opposite action. Client reported she woke suddenly to her mother and brother arguing, and client wanted to yell at them for waking client up, but she did not. Client?s mental health win today is that her nails are long ?for the first time ever.? Client reported this is a positive because she used to bite her nails ?down to the nubs? whenever she was anxious or stressed. Client stated she has been able to prevent herself from biting her nails by using other coping skills. Client?s current stressor is ?work stress? every day. Client appeared to benefit from reflecting on her gains and connecting with peers. Will continue IOP tx to promote use of emotional regulation skills to improve daily functioning and relationships.
--- NOTE | 2018-12-08 10:10 | BH.SGPN.GN ---
Behaviors/Verbalizations/Mental Status: [] Eye contact is good. Motor activity is appropriate. Appearance is neat. Speech is Appropriate. Mood is depressed. Affect is flat. Thoughts are linear and logical. No evidence of psychosis. Client Response/Progress/Benefit: [] Participated at times during discussions providing some insight. Attentive during psychoeducation on differences between fixed and growth mindset. Worked with group to identify how a fixed mindset can impact our mental health which included; not trying new coping skills, believing we can't get better, keeping us stuck, reinforcing fear of failure, decreasing motivation, and avoiding challenges. Group identified the impact that a growth mindset can have on mental health which includes; More likely to embrace challenges, encourages us to try new skills, learn from setbacks rather than ruminate on them, encourages us to believe in ourselves. Pt was able to identify some examples of fixed mindset that she often has. Benefited from group by increasing awareness of how one's mindset impacts our mental health. Narrative Note: []
--- NOTE | 2018-12-09 09:04 | BH.SGPN.GN ---
Behaviors/Verbalizations/Mental Status: []Client alert and oriented, casual dress, hygiene tended to. Eye contact good. Motor activity appropriate. Speech within normal limits. Affect congruent, mood euthymic. Thoughts linear, logical, no signs of hallucinations or delusions. Reviewed client?s symptom tracker, no signs of suicidal ideation, plan, or intent as of today. Client Response/Progress/Benefit: []Pt was an engaged participant in group discussion, providing input and openly processing with the group. Emotion for today is hyper and peaceful. Pt reported current stressor is going to an adoptee event this weekend to meet other people who have been adopted. Pt stated she recognizes this event can be a positive experience for her, but feeling anxious about meeting new people and worried others won't connect with her since she was adopted when she was older. Pt stated although she is anxious she plans to attend the event. Pt noted progress as being able to spend the full day at work yesterday because feeling physically better. Additional positives as having decrease in worry, improved ability to get of a funk, and using her healthy skills more frequently. Progress noted with pt reporting improved mood and attempting to apply skills outside treatment environment. Continued IOP tx recommended to maintain gains, prevent decompensation, and continue to improve emotion regulation skills. Narrative Note: []
--- NOTE | 2018-12-09 10:13 | BH.SGPN.GN ---
Behaviors/Verbalizations/Mental Status: [Client alert and oriented, casually dressed, appropriate grooming. Eye contact good. Motor activity WNL. Speech appropriate rate and tone. Affect congruent, mood euthymic. Thoughts linear, logical, no signs of hallucinations or delusions. ] Client Response/Progress/Benefit: [Pt responded well to session, provided input and able to reflect on content discussed throughout. Pt more actively engaged than in recent sessions AEB increased input and not distracted with other things in room. Connected with the quote and indicated ?change is inevitable?, further identified that if we don?t accept change we will continue to suffer. Pt participated in group discussion regarding mental health benefits of change and identified that change can bring new opportunities. Pt identified three small personal changes to improve mental health as: reducing stress by organizing her room, begin taking daily walks, and spending more quality time with family. Pt appeared to benefit from gaining awareness of personal changes that would improve mental health and the barriers keeping client stuck. Barriers identified as: struggling with the urge to run from things, making excuses like ?I?m too tired?, and telling herself it 'doesn?t matter anyways'. Progress noted in pt willingness to begin holding herself accountable and begin applying emotional regulation skills. Continue IOP to further increase consistent application of healthy coping skills, improve emotion regulation and healthy change behaviors, and maintain current gains.] Narrative Note: []
--- NOTE | 2018-12-09 13:49 | BH.MDN ---
Multi-Disciplinary Note - Note Family Time Started:: 08:14 Date: 12/09/18 Purpose of session/treatment goals addressed:: The purpose of this session was to engage client's mother and father in client's treatment by addressing symptoms, application of coping skills, and recent triggers. Another purpose was to improve communication and challenge distortions. Eye Contact:: Good Motor Activity:: Appropriate Appearance:: Neat Speech:: Appropriate Mood:: Anxious Affect:: Congruent Thoughts:: Linear, Logical, No evidence of hallucinations/delusions noted Staff Interventions:: Therapist used open-ended questions and active listening to gather information on client's, and her parent?s, expectations for the session. Therapist encouraged open communication and provided clarification when necessary. Therapist provided insight to client?s progress this week, application of coping skills, and recent triggers. Therapist helped the family process client?s recent trigger and client?s conflicting emotions. Therapist helped client identify, communicate, and challenge distortions which cause rumination and urges to avoid. Therapist engaged ongoing communication, boundary setting, and use of opposite action. Client Response:: Client and her parents responded well to session, open to meeting with therapist. Client's parents identified their expectations for session which included communication and the importance of client seeking support. Client's mother shared she and client had a good conversation earlier this week which helped client feel better and provided clarification for mother. Client shared the conversation was not as bad as she expected. Client reported although she continues to fear being honest with her parents at times, client has been trying to communicate more. Client stated, plus I know they are going to find out anyway. Family discussed barriers to communication such as client's distorted thinking. Client reported she has thoughts of what if they get jealous, what if they think I'm not appreciative, what if they think I don't love them which prevents client from talking to her parents about her triggers at times. Family able to process and combat client's distortions. Client's parents provided validation that they love client and normalized the conflicting feelings client has about her biological mother. Client further shared about the recent thoughts she has been having about her biological mother. With help from therapist, client was able to recognize that her automatic thoughts about returning to her biological mother are not indicative of client?s character and she can choose not to act on those thoughts. Client stated, I would never go back to her because I know it would be terrible. Client shared she has been practicing opposite action which has been helpful to avoid engaging in unhealthy coping skills and impulsive decisions. Family open to discussing aftercare options and client was provided with a list of therapists in the area. Risks/Concerns:: Client denies any suicidal ideations, plan, or intent as of 12/09/18. Future oriented throughout session. Plans to attend a retreat this weekend. Progress Toward Goals/Plan:: Client is demonstrating progress towards her treatment goals as shown by her self-report of reduced negative thinking, improved communication with parents, and increased motivation. Client?s parents report seeing progress in client this week as they report client has been isolating less, being more honest, and regulating her emotions better. Client continues to endorse distorted thinking, a depressed mood of reduced intensity, rumination, and urges to engage in impulsive behaviors. Client?s motivation level is high this week, however, progress continues to vary depending on client?s motivation levels as evidenced by client?s self-report and application of coping skills. Client to continue IOP to promote emotional regulation, maintain safety, and promote use of healthy coping skills. Time Stopped:: 09:05
--- NOTE | 2018-12-13 10:34 | BH.COMM_ITS ---
Communication Note - Communication with Client Communication Note: Therapist called client and left a message providing i nformation for outpatient psychiatry at [facility]. Client and therapist currently working on establishing aftercare. Therapist encouraged client to call with follow up questions.
--- NOTE | 2018-12-15 09:07 | BH.SGPN.GN ---
Behaviors/Verbalizations/Mental Status: [Eye contact is good. Motor activity is appropriate. Appearance is casual. Speech is Appropriate rate and tone. Mood is anxious, dysthymic. Affect is congruent. Thoughts are linear and logical. No evidence of psychosis. Reviewed daily check in sheet and pt reports mild passive SI consistent with pt baseline, denies any active plan, or intent. ] Client Response/Progress/Benefit: [Pt responded well to session, open to processing with the group. Pt indicated current emotion as ?restless and anxious? and discussed that this is due to adjusting to changes in improved mental health and anxiety about beginning a new job. Appeared to connect with support from fellow participants and recognized importance practicing self-care when feeling anxious in order to prevent it from escalating to point of crisis. Pt identified current mental health ?wins? and indicated that taking a new job is a win as it will reduce unnecessary stress she had at her old position. Willing to discuss pros and cons of leaving multiple jobs to begin new ones when feeling anxious or triggered by current position, ultimately deciding that pros outweighed potential cons of decision. Additional win as starting to more actively apply opposite action skills of going for walks and doing things outside her house. Pt appearing to benefit from support and structure of group environment. She continues to make progress in pt self report of practicing internal means for coping and is recommended continued IOP tx to prevent decompensation, maintain stability, and promote ongoing application of healthy coping skills.] Narrative Note: []
--- NOTE | 2018-12-15 10:14 | BH.SGPN.GN ---
Behaviors/Verbalizations/Mental Status: []Client alert and oriented, casually dressed and groomed. Eye contact fair. Motor activity appropriate. Speech within normal limits. Affect constricted, mood anxious. Thoughts linear, logical, no signs of hallucinations or delusions. Client Response/Progress/Benefit: []Client responded well to session, attentive and participating in small group discussion. Group identified the benefits to setting boundaries as well as the consequences of not setting healthy boundaries. Benefits included: improved mental wellness, improved self-worth, self-love, less stress, less resentment, and avoid being taken advantage of. Group discussed the consequences of not setting boundaries which included: worsening mental health, lack of progress, and staying stuck in unhelpful situations. Client reported her boundaries have been disrespected multiple times which frustrates client. Client stated it is hard for her to trust others because of her past. Client engaged during discussion of the different types of boundaries and engaged in the self-assessment activity. Client able to recognize her own mental health suffers when she does not set boundaries. Client seemed to benefit from increased awareness how poor boundaries can negatively impact mental health. Client to continue IOP tx to promote use of emotional regulation skills and improve daily functioning.
--- NOTE | 2018-12-15 12:02 | BH.MDN ---
Multi-Disciplinary Note - Note 30-min Individual Time Started:: 11:20 Date: 12/15/18 Purpose of session/treatment goals addressed:: The purpose of this session was to address current symptoms, stressors, and self-sabotage. Another goal was to review healthy coping skills and effective communication skills. Other topics included: aftercare and maintenance Eye Contact:: Good Motor Activity:: Restless Appearance:: Neat Speech:: Appropriate Mood:: Anxious Affect:: Other - incongruent- smiling, but reporting feeling anxious and tired Thoughts:: Linear, Logical, No evidence of hallucinations/delusions noted Staff Interventions:: Therapist used active listening and open-ended questions to explore client's symptoms, stressors, and recent self-sabotaging behaviors. Therapist used cognitive restructuring techniques and dialectical thinking to help client see different perspectives. Therapist gently challenged client on self-sabotaging behaviors and helped client explore the costs and benefits of not communicating with her mother. Therapist encouraged use of emotional release coping skills to process her thoughts and emotions from the weekend. Therapist and client called [facility] and [facility] to establish aftercare. Client Response:: Client responded well to session, open to meeting with therapist. Client shared she has been doing okay. Client reported she occasionally feels depressed and overwhelmed, but she is able to remind herself that she can manage her stressors. Client able to recognize progress in using opposite action and distractions, but client reports ongoing difficulty with processing her emotions and thoughts. Client and therapist discussed ways client can process her emotions instead of minimizing or avoiding. Client stated journaling has been helpful in the past and she was willing to try journaling this week. Client shared she is currently seeking a different job. Client reported she has not told her mom yet because client does not want to deal with her mother's response. Client reported if her mother asks, client will tell her mom the truth, but client does not plan on telling mom before then. Client and therapist discussed the pros and cons of withholding information from her mother. Client willing to call and schedule her aftercare appointments with therapist today. Client scheduled an appointment at [facility] for next week. Client was unable to schedule an appointment at [facility] for outpatient psychiatry, but client left a message. Risks/Concerns:: Client denies any suicidal ideations, plan, or intent as of 12/15/18. Future oriented throughout session. Progress Toward Goals/Plan:: Client continues to demonstrate progress towards her treatment goals in certain areas. Client is showing progress with using opposite action and distractions to prevent isolation and anger outbursts. However, client continues to struggle with challenging her perspective, communicating with her parents, and processing her emotions. Client?s progress continues to vary depending on client?s motivation levels as evidenced by client?s self-report and application of coping skills. Client receptive to scheduling an appointment with Farhana yad[facility] [place] and [facility]. Client also left a message for [facility]. Client to continue IOP to promote emotional regulation, reduce self-sabotaging behaviors, and promote use of healthy coping skills. Time Stopped:: 11:45
--- NOTE | 2018-12-15 13:20 | BH.TPR ---
Treatment Plan Review Date of Admission:: 11/09/18 Date of Treatment Plan Review:: 12/15/18 Admitting Diagnoses:: Major depressive disorder recurrent severe without psychosis F33.2, rule out bipolar NOS; PTSD; generalized anxiety disorder; rule out borderline personality disorder. Current Diagnoses:: Major depressive disorder recurrent severe without psychosis F33.2, rule out bipolar NOS; PTSD; generalized anxiety disorder; rule out borderline personality disorder. Patient's Response to Treatment:: Client responded mostly well to treatment so far as shown by her reduced DSM-5 scores and her ability to more effectively cope with daily stressors. At time of intake, client was reporting daily suicidal thoughts, depressed mood, and isolative behaviors. At review, client reported feeling more hopeful, had reduced suicidal ideations, and a better relationship with her supports. In group sessions, client provides input occasionally, but she is mostly quiet and often colors during session. In individual sessions, client is receptive to feedback and gentle perspective challenging. Client has done well to engage her family in treatment and has had her parents come in for several sessions. Although client?s symptoms have reduced, she is not always consistent with homework and applying coping skills. Client also struggles at times with being honest with her supports due to fear of consequences, but she is showing progress with using opposite action. Client's DSM-5 scores decreased from 50 to 18 since admission. Client?s DSM-5 score for anxiety reduced from 11/12 at admission to 2/12 at review. Client?s score for depression decreased from 5/8 at admission to 1/8 at review. Client?s suicidal ideation scores decreased from 3/4 at admission to 1/4 at review and client reported her suicidal ideations are passive in nature and last less than an hour when they occur. Status of Current Problems and Symptoms: Client is showing progress towards her treatment goals in certain areas. Client is showing progress with using opposite action and distractions to prevent isolation and anger outbursts. Client denies any suicidal ideations and reports more hope for the future. However, client continues to struggle with challenging her perspective, communicating with her parents, and processing her emotions. Client?s progress continues to vary depending on client?s motivation levels as evidenced by client?s self-report and application of coping skills. Problem #1 Problem Name:: Pt. will reduce depressive symptoms, SI, and negative thinking Status of Goals:: Objective 1- Complete, but ongoing work recommended. Client denies suicidal ideations and reports decreased unhelpful action urges. However, client continues to struggle with challenging negative self-talk on a consistent basis. Objective 2- complete, but ongoing work recommended. Client?s DSM-5 symptoms have decreased from 5/8 at admission to 2/8 at review. Client can identify healthy coping skills to better manage her mood symptoms, but she acknowledges that she struggles with consistency and motivation. Team Recommendations:: Client is recommended to continue working on this treatment goal as she can benefit from ongoing maintenance of coping skills to promote mood stability. Client has made strides to challenge negative thinking and engage in opposite action. Client has been encouraged to practice thought challenging on a regular basis and to communicate with her supports when she is having a distorted thought. It is also recommended that client follow up with [facility] for continuity of care. Problem #2 Problem Name:: Pt. will increase mood stability by increasing emotional regulation skills Status of Goals:: Objective 1- partially complete. Client can identify triggers and coping skills to use when she experiences mood dysregulation. Client reports increased use of opposite action which has helped client prevent herself from engaging in unhealthy action urges. However, client self-reports difficulty with consistently implementing coping skills. Objective 2- mostly complete. Client can more easily recognize distortions that led to mood dysregulation. Client also knows strategies to combat these thoughts which include talking with her parents, challenging her perspective, and deep breathing. Client can continue to benefit from challenging distortions on a more consistent basis and communicating openly with her parents. Team Recommendations:: Client is recommended to continue working on this goal as she can improve her emotional regulation skills in order to manage daily stressors more effectively. Client has made strides in implementing mindfulness strategies, opposite action, and communicating more with her supports. However, client continues to struggle with mood dysregulation and urges to engage in unhealthy coping skills. Client is also recommended to follow up with [facility] for continuity of care. Client also encouraged to continue attending her adoptee support group.
--- NOTE | 2018-12-16 09:03 | BH.SGPN.GN ---
Behaviors/Verbalizations/Mental Status: []Client alert and oriented, casual dress, hygiene tended to. Eye contact fair. Motor activity appropriate. Speech within normal limits. Affect constricted, mood depressed. Thoughts linear, logical, no signs of hallucinations or delusions. Reviewed client?s symptom tracker, no signs of suicidal ideation, plan, or intent as of today. Client Response/Progress/Benefit: []Pt appeared to listen attentively to others and openly shared thoughts and feelings with group. Emotion for today is stressed. Pt indicated that she has been struggling with her current job becoming too stressful. Pt stated she wants to quit her current job and get a job that she believes will be more enjoyable. However, pt stated her mom is not supportive of the job switch because of the reduction in income. Pt reported she is frustrated with her financial situation and losing hope again. Pt identified a mental health positive was taking time for herself yesterday to do a self-care activity. Progress tends to correlate with pt's motivation level. Currently progress stagnant AEB pt continuing to struggle with following through with plan to increase independence. Continued IOP tx recommended to improve consistent utilization of skills, prevent decompensation, and continue to improve emotion regulation skills. Narrative Note: []
--- NOTE | 2018-12-16 10:15 | BH.SGPN.GN ---
Behaviors/Verbalizations/Mental Status: [] Eye contact is good. Motor activity is appropriate. Appearance is casual. Speech is Appropriate. Mood is depressed. Affect is flat. Thoughts are linear and logical. No evidence of psychosis Client Response/Progress/Benefit: [] Pt was an active participant in group discussion and activity. Attentive during psycho-education. Worked with group to define stress. Group settled on the definition of a reaction to change. Group also identified warning signs to stress and had a discussion on how certain types of stressors can actually be beneficial. Attentive during psycho-education on [place] (motivates, encourages growth) and distress (overwhelmed, hopelessness, low energy, anger, worry). Pt was given a worksheet in which she identified the current stressors and their impact on her life and her mental health which she shared with the group. Narrative Note: []
--- NOTE | 2018-12-16 11:15 | BH.SGPN.GN ---
Behaviors/Verbalizations/Mental Status: [Client alert and oriented, casual appearance and appropriate grooming. Eye contact fair to good. Motor activity appropriate. Speech within normal limits. Affect congruent, mood dysthymic and anxious. Thoughts linear, logical, no signs of hallucinations or delusions.] Client Response/Progress/Benefit: [Pt semi-engaged in session as evidenced by pt listening attentively to others and providing some input throughout session, however at times appeared distracted by herself and the items on the table. Pt worked with the group to complete the challenge activity and appeared to increase engagement by doing so. She was able to identify barriers encountered that may also impact managing stress in daily life, indicating that lack of trust in supports can be a barrier to reaching out for help with managing stressors. Pt engaged in discussion about the 4 A's of managing stress. Pt identified she will focus on adapting her perspective on mental health which is a current stressor. Pt stated she wants to accept that she has depression and not try to run from or avoid it. Pt seemed to benefit from increased awareness of the impact of stress on mental health and increasing repertoire of stress management strategies. Pt to continue in IOP to prevent decompensation, continue promote use of healthy coping skills and improve use of her supports.] Narrative Note: []
--- NOTE | 2018-12-19 09:05 | BH.SGPN.GN ---
Behaviors/Verbalizations/Mental Status: [Eye contact is good. Motor activity is appropriate. Appearance is casual. Speech is Appropriate rate and tone. Mood is euthymic. Affect is congruent. Thoughts are linear and logical. No evidence of psychosis. Reviewed daily check in sheet and pt denies any active SI, plan, or intent. ] Client Response/Progress/Benefit: [Pt responded well to session, engaged throughout and open to processing with the group. Pt indicated current emotion as ?calm? and discussed that this is due to being able to use skills over the weekend to prevent an unnecessary argument with a ?toxic co-worker?. Went on to discuss that she set a boundary and indicated not wanting to be involved in the conversation. Pt noted this as a mental health win as she has had difficulties in setting boundaries with others in the past. Additional win recognized as spending less time isolated in the house and [facility]. Shared work continues to be a stressor but that she is using thought challenging and positive self-talk to cope. Pt appearing to benefit from support and structure of group environment. Pt continues to make progress in practicing more consistent use of coping skills and self-reports increased mood stability. Pt is recommended continued IOP tx to prevent decompensation, maintain gains, and promote ongoing application of healthy coping skills.] Narrative Note: []
--- NOTE | 2018-12-19 10:15 | BH.SGPN.GN ---
Behaviors/Verbalizations/Mental Status: []Client alert and oriented, casual dress, hygiene tended to. Eye contact fair. Motor activity appropriate. Speech within normal limits. Affect constricted, mood dysthymic. Thoughts linear, logical, no signs of hallucinations or delusions. Client Response/Progress/Benefit: []Client passive participant as evidenced by client providing limited input throughout discussion, however did appear to listen attentively to others. Client agreed with others that she experiences automatic negative thoughts. Client connected with the discussion about how distorted thought patterns can reinforce mental health symptoms. Client reported that she struggles with minimization. Client stated she often will minimize her mental health symptoms, which leads to client not getting help until she is ?at rock bottom?. Continuing to struggle with consistent application of healthy skills and strategies outside treatment environment. Mood continues to be dictated by external events and situations. Appeared to benefit from increasing awareness of cognitive distortions and how they can impact emotions and behaviors. Client to continue IOP to improve emotional regulation, increase consistent utilization of healthy coping skills, and prevent decompensation. Narrative Note: []
--- NOTE | 2018-12-19 11:15 | BH.SGPN.GN ---
Behaviors/Verbalizations/Mental Status: []Client alert and oriented, neatly dressed and groomed. Eye contact fair. Motor activity appropriate. Speech within normal limits. Affect congruent, mood euthymic. Thoughts linear, logical, no signs of hallucinations or delusions. Client Response/Progress/Benefit: []Client?engaged during session AEB client contributing in small group discussion and engaging in activity. Client worked cooperatively with peers during group activity. Client acknowledged the importance of needing to have awareness and put forth the effort to challenge, reframe, and replace distorted thought patterns. Client reported challenging thoughts is difficult because ?we?ve had these thoughts for a long time.? Client worked cooperatively with group to challenge distorted thoughts and was attentive in learning strategies to combat distortions. Client reported she wants to practice thought challenging by asking herself if what she is thinking is helpful to her progress. Client seemed to benefit from increased awareness of cognitive distortions and practicing reframing distorted thoughts. Client to continue IOP level of care to promote maintenance of healthy coping skills and establish aftercare.
== END 2018-12-19 23:59 ==
LOC: BHIOP 09:00
PROVIDERS: Family Provider Student in an Organized Health Care Education/Training Program; PCP Student in an Organized Health Care Education/Training Program; Referring Provider Psychiatry & Neurology Psychiatry; Visit Provider Psychiatry & Neurology Psychiatry
DX: F33.2 Major depressive disorder, recurrent severe without psychotic features (principal); F43.10 Post-traumatic stress disorder, unspecified; F41.1 Generalized anxiety disorder
CPT/HCPCS: H0035; H2012; H2020; 90832; 90834; 90847

== ENCOUNTER 2018-12-20 09:00 | Outpatient (RCR) | payer MEDICAID, SELFPAY ==
[2018-11-01 13:40] VITALS: BMI 28.8
--- NOTE | 2018-12-20 10:10 | BH.SGPN.GN ---
Behaviors/Verbalizations/Mental Status: []Client alert and oriented, neatly dressed and groomed. Eye contact fair. Motor activity appropriate. Speech within normal limits. Affect congruent, mood euthymic. Thoughts linear, logical, no signs of hallucinations or delusions Client Response/Progress/Benefit: []Client active participant in group AEB client participating when prompted and listening attentively to peers. Group worked together to identify barriers to making changes or taking action in their lives which included: fear of the unknown, fear of losing control, the perception of others, fear of leaving one?s comfort zone, a ?why bother? attitude, and lack of motivation. Group also identified the benefits of change which included; improved relationships, improved mental wellness, increased confidence, and feelings of accomplishment. Client identified areas she would like to take back control over to include: social anxiety, fear of judgement, feelings of worthlessness, negative self-talk, lack of motivation, feeling alone ?even though I know I?m not,? and self-hate. Benefited from group through awareness of personal areas she wants to improve and benefits to taking action towards mental wellness. To continue IOP level of care to reinforce healthy coping skills and improve emotional regulation.
--- NOTE | 2018-12-23 08:08 | BH.IGGP_ITS ---
Aftercare Plan - Demographics Treatment End Date:: 12/23/18 Psychiatrist:: Che Marquez Psychiatrist Office #:: [id number] [facility] Therapist:: Adelita Medley Therapist Phone #:: [phone] - Medications Home Medications: Home Medications Levonorgesterol [Mirena] 1 ea IU X1 10/07/18 Fluoxetine [Prozac] 40 mg PO DAILY 11/01/18 Aripiprazole [Abilify] 2 mg PO DAILY 11/16/18 hydrOXYzine tablet [Atarax tablet] 40 mg PO 4X/DAY PRN PRN 11/16/18 - Plan Details Progress/Aftercare Plan Details:: It has not always been the easiest or smo othest road in treatment, but Minnie has persisted. Minnie has shown progress towards her treatment goals while in [facility] in several different ways. Minnie has increased self-awareness of her triggers, emotional action urges, and self-sabotaging behaviors. Minnie has learned the benefits of opposite action, open communication, and self-care. Minnie has been able to apply coping skills to prevent further escalation of symptoms and she has started using thought challenging to combat distorted self-talk statements. Minnie has made strides to reach out to supports including an adoptee support group and increasing communication with her parents. Minnie is encouraged to follow up [facility] at [facility]. Minnie is also encouraged to continue with medication compliance through [facility]. Minnie can continue to increase consistent application of healthy coping skills and continue to engage in open communication with her parents. Lastly, Minnie can benefit from ongoing work to challenge, replace, and reframe distorted thoughts that reinforce depression and negative core beliefs. Strategies for Success:: 1. Communication!! Continue open communication with your parents. Remember when in doubt, talk about it. 2. Opposite action! Continue to take control over your emotions rather than letting your emotions rule you. 3. self-awareness. Stay aware of your warning signs, triggers, emotion urges, and negative thoughts that could keep you stuck. 4. Self-care is meléndez. Remember self-care is not always physical, but making sure you take your meds, go to therapy, set boundaries, and challenge yourself. 5. Challenge negative thoughts that try and convince you're not good enough, you're alone, or that you won't be able to succeed. 6. One step at a time. One day at a time. One task at a time. 7. Surround yourself with healthy supports and reinforce boundaries when needed. 8. Breathe! 9. Focus on what you have accomplished so far, rather than having tunnel vision to all you need to accomplish still. 10. Give yourself credit! Great work! - Appointments Appointments/Referrals to Other Services:: 1. follow up with [facility] 12/29/18. 2. Follow up with [facility] for ongoing medication management. 3. [facility]. 4. Follow up with me in two weeks for a check-in.
--- NOTE | 2018-12-23 10:03 | BH.SGPN.GN ---
Behaviors/Verbalizations/Mental Status: []Client alert and oriented, disheveled appearance. Eye contact good. Motor activity appropriate. Speech within normal limits. Affect congruent, mood euthymic. Thoughts linear, logical, no signs of hallucinations or delusions. Client Response/Progress/Benefit: []Client receptive of session, attentive in discussion and activity. Client discussed the quote and shared one cannot always think clearly when emotions are high, ?so you first breathe.? Client helped group identify the consequences of not effectively managing emotions which included; strained relationships, guilt, increased negative thinking, increase mental health symptoms, and impulsive behaviors. Group identified barriers that impact one?s ability to communicate when emotions are high. These barriers included; acting on impulse, shutting down, physical aggression, assumptions, and misinterpretations. Client participated in the activity and did well to regulate her emotions. Client reported she used sitting with the uncomfortable which helped client regulate emotions in the moment. Client appeared to benefit from increasing awareness of how emotions can impact communication and practicing in the moment coping skills. Will discharge from [facility] today as she has reduced her symptoms and no longer meets criteria for [facility] level of care.
--- NOTE | 2018-12-23 11:20 | BH.SGPN.GN ---
Behaviors/Verbalizations/Mental Status: []Client alert and oriented, casually dressed and appropriately groomed. Eye contact poor. Motor activity appropriate. Speech within normal limits. Affect congruent, mood euthymic. Thoughts linear, logical, no signs of hallucinations or delusions Client Response/Progress/Benefit: []Client disengaged throughout group session AEB pt coloring throughout session, not contributing to discussion, and not finishing provided handout to increase awareness of her emotional states. Client only completed some of the worksheet of identifying how she feels in each zone as well as how she acts in each zone. Client identified when in the low energy zone she is more irritable. Client stated she knows she is in a regulated state when she feels determined and engages in self-care. Client did not complete the rest of the worksheet about identifying coping skills that can help her when she is in the different emotional states. Client's limited engagement during some groups may have contributed to client's stagnant progress throughout IOP treatment. Client has reached her maximum benefit from IOP level of care and will discharge from IOP today. Narrative Note: []
--- NOTE | 2018-12-23 15:25 | BH.DS ---
Discharge Summary - Demographics Date of Admission:: 11/09/18 Discharge Date: 12/23/18 Presenting Problems at Admission:: Client is a 28-year-old female with a history of depression, PTSD, cluster B traits, and anxiety. Client previously participated in IOP from 09/27/18-11/01/18 but was discharged due to inpatient hospitalization for suicidal ideations with plan to overdose. Client was discharged from [facility] on 11/08/18. Client had one previous suicide attempt on 09/22/18 in which client ingested 1-1/2 bottles of her prescription pills on a family vacation in [place] and was hospitalized. At time of intake, client endorsed a depressed mood of reduced intensity, lack of energy, lack of concentration, passive wishes of , lack of motivation, emotional dysregulation, irritability and anxiety about being more independent. Client?s symptoms also were impacting her social, familial, and occupational functioning. Discharge Diagnoses:: Major depressive disorder recurrent severe without psychosis F33.2, rule out bipolar NOS; PTSD; generalized anxiety disorder; rule out borderline personality disorder. Reason for Discharge:: Client has demonstrated significant progress towards her treatment goals as shown by her reduced depression, report of no suicidal ideations, and improved ability to regulate emotions. Client no longer meets criteria for [facility] level of care. - Treatment Progress During Treatment & Response: Client responded mostly well to treatment as shown by her reduced DSM-5 scores and her ability to more effectively cope with daily stressors. At time of intake, client was reporting daily suicidal thoughts, depressed mood, and isolative behaviors. By time of discharge, client reported feeling more hopeful, had reduced suicidal ideations, and a better relationship with her supports. In group sessions, client provided input occasionally and was often supportive to peers. In individual sessions, client was receptive to feedback and gentle perspective challenging. Client did well to engage her family in treatment which helped her supports and client. However, client was not always consistent with homework and applying coping skills. Client also struggled at times with being honest with her supports due to fear of consequences, but she made significant improvements with this. At admission, client reported symptoms of anxiety, depression, and isolation that interfered with her daily functioning and relationships. At discharge client reported reduced anxiety, decreased depression and suicidal ideations, and reduced isolation. Client's DSM-5 scores decreased by 38 points. Client?s DSM-5 score for anxiety reduced from 11/12 at admission to 2/12 at discharge. Client?s score for depression decreased from 5/8 at admission to 1/8 at discharge. Client?s suicidal ideation scores decreased from 3/4 at admission to 0/4 at discharge. Issues Still to be Addressed:: Client has made progress towards her treatment goals, but she can continue to benefit from ongoing therapy to reinforce healthy coping skills, combat negative core beliefs, and increase emotional regulation skills. Client acknowledges that her motivation level determines how much effort she puts into maintenance and application of coping skills. Client can benefit from increasing positive supports, continuing to communicate with her parents, and applying opposite action skills. Client continues to struggle with coping with trauma triggers and can benefit from continuing to process and cope with these. Client would like to increase emotional regulation rather than reverting to emotional numbing or avoidance. Lastly, client has reported that she is struggling with fatigue throughout the day and reports belief it is due to her medication. Discharge Recommendations/Instructions:: Client is recommended to follow up with her Farhana at [facility] for continuity of care. Client?s next appointment is 12/29/18. Therapist attempted to helped client setup outpatient psychiatry through [facility] in [place]. Client reported she has been unable to schedule an appointment. Client shared she plans to follow up with her PCP for medication management while waiting to hear back from [facility]. Client to follow up with therapist in two weeks. Discharge Handout: Complete Discharge Handout with client on aftercare options and continuity of care.
--- NOTE | 2018-12-23 15:26 | BH.MDN_ITS ---
Multi-Disciplinary Note - Note 30-min Individual Time Started:: 09:20 Date: 12/23/18 Purpose of session/treatment goals addressed:: The purpose of this session was to review client's progress and review strategies that will promote mood stability and gains made in [facility]. Another goal was to discuss discharge recommendations. Eye Contact:: Good Motor Activity:: Appropriate Appearance:: Casual Speech:: Appropriate Mood:: Anxious Affect:: Congruent - tearful when talking about discharge Thoughts:: Linear, Logical, No evidence of hallucinations/delusions noted Staff Interventions:: Therapist used open-ended questions to explore client's thoughts on personal progress. Therapist reviewed supports, warning signs, and coping skills with client to promote gains and prevent setbacks. Therapist discussed aftercare plan with client and used strengths-perspective to empower client on the goals client has accomplished. Therapist discussed the benefits of ongoing maintenance and use of daily coping skills. Therapist gave client a quote collage for closure. Client Response:: Client responded well to session, open to meeting with therapist. Client reflected on her progress since starting IOP and shared belief she has improved with using opposite to prevent negative consequences. Client self-reports improved communication with her parents, less distorted thinking, and feeling more hopeful. Client reported she feels more in control of her emotions and she is able to see different perspectives a little easier. Client shared she has been working on catching her unrealistic thoughts and challenging them which has prevented client from making assumptions. Client continues to work on challenging her perspective and self-sabotaging behaviors. Client reviewed coping skills that will promote gains and mood stability. Client's coping skills included; opposite action, self-care, communicating with supports, deep breathing, catching herself when using distortions, and setting boundaries. Client?s DSM-5 scores decreased from 50 at admission to 12 at discharge. Client self-reported progress in reduced symptoms, improved relationship with her parents, and feeling more hopeful. Risks/Concerns:: Client denies any active suicidal ideations, plan, or intent as of 12/23/18. Progress Toward Goals/Plan:: Client to discharge from [facility] today as she has made progress towards her treatment goals as evidenced by her reduced DSM-5 scores and self-report of improved mood stability. Client also reports decreased suicidal ideations and improved communication with her parents. Client ac knowledges that ongoing progress will be determined by client?s continued application of coping skills and motivation. Client will continue outpatient therapy on a weekly basis at [facility] with Farhana. Client is in the process of getting an intake at [facility] for outpatient psychiatry. Time Stopped:: 09:45
== END 2019-01-19 23:59 ==
LOC: BHIOP 09:00
PROVIDERS: Family Provider Student in an Organized Health Care Education/Training Program; PCP Student in an Organized Health Care Education/Training Program; Referring Provider Psychiatry & Neurology Psychiatry; Visit Provider Psychiatry & Neurology Psychiatry
DX: F33.2 Major depressive disorder, recurrent severe without psychotic features (principal); F43.10 Post-traumatic stress disorder, unspecified; F41.1 Generalized anxiety disorder
CPT/HCPCS: H0035; H2012; 90832

== ENCOUNTER → 2019-12-22 09:10 | Outpatient (CLI) | payer MEDICAID, SELFPAY ==
[2018-11-01 13:40] VITALS: BMI 28.8
== END ==
PROVIDERS: PCP Student in an Organized Health Care Education/Training Program; Referring Provider Nurse Practitioner Family; Visit Provider Nurse Practitioner Family
DX: Z11.59 Encounter for screening for other viral diseases (principal)
CPT/HCPCS: 87635; C9803; U0003

== ENCOUNTER 2020-10-20 14:07 | Emergency (ER) | payer MEDICAID, SELFPAY ==
[2018-11-01 13:40] VITALS: BMI 28.8
[2020-10-20 14:08] VITALS: BP 130/83; PULSE 80; RESP 14; TEMP 36.4; O2SAT 99; BMI 33.3
[2020-10-20 14:58] LABS: Absolute Lymphocyte Count 2.16 X10^3/uL (0.83-4.51); Absolute Neutrophil Count 3.8 X10^3/uL (2.0-7.7); Basophil# 0.05 X10^3/uL; Basophil% 0.7 % (0-1); Eosinophil# 0.36 X10^3/uL; Eosinophils% 5.2 % (0-5); Hematocrit 41.3 % (37-47); Hemoglobin 13.8 g/dL (12.0-15.0); Lymphocyte # 2.16 X10^3/ul (0.83-4.51); Lymphocyte % 31.1 % (19-41); Mean Corp Hgb Conc 33.4 g/dL (32-36); Mean Corpuscular Hgb 27.9 pg (27.0-32.0); Mean Corpuscular Volume 83.6 fL (81-99); Mean Platelet Vol. 10.5 fl (6.2-12.0); Monocyte# 0.54 X10^3/uL; Monocyte% 7.8 % (0-10); NRBC Flagged by Analyzer 0 % (0-5); Neutrophil # 3.83 X10^3/uL (2.7-7.7); Neutrophil % 55.1 % (47-70); Platelet Count 243 K/mm3 (150-450); RBC Distribution Width CV 12.9 % (11.6-14.6); RBC Distribution Width SD 39.1 fl (35.1-43.9); Red Blood Count 4.94 M/mm3 (4.2-5.4)
[2020-10-20 15:13] LABS: AST(SGOT) 19 U/L (15-37); Alanine Aminotransfer ALT/SGPT 29 U/L (13-56); Albumin, Serum 3.8 g/dL (3.2-5.0); Alkaline Phosphatase 86 U/L (45-117); Anion Gap 6 (5-15); BUN 11 mg/dL (7-18); BUN/Creat Ratio 12.7 RATIO (10-20); Bilirubin, Direct 0.09 mg/dL (0.00-0.30); Calcium,Total 8.5 mg/dL (8.5-10.1); Chloride 110 mmol/L (98-107); Creatinine, Serum 0.87 mg/dL (0.55-1.02); EST Glomerular Filtration Rate 83 mL/min (>60); Est Glom Filt Rate - Afr Amer 100 mL/min (>60); Globulin 3.4 g/dL (2.2-4.2); Glucose 99 mg/dL (74-106); Lipase 150 U/L (73-393); Potassium 3.9 mmol/L (3.5-5.1); Protein, Total 7.2 g/dL (6.4-8.2); Sodium Level 139 mmol/L (136-145)
--- NOTE | 2020-10-20 16:04 | EX.ED.DYSGE1 ---
HPI History of Present Illness Chief Complaint: Abd Pain Informant: patient Onset/Context/Timing Onset: - (Acute on chronic) Current Severity: Mild Maximum Severity: Moderate Narrative Narrative: Patient present secondary to upper abdominal pain. She states is been having abdominal issues for the last 12 years. Last evening she took Prilosec and went to bed. She woke up with more severe pain. She had a taking a total of 4 Prilosec to get pain under control. She denies fever or chills. She will occasionally have vomiting. She states she went to urgent care who was concerned she may have a bleeding ulcer and sent her to the emergency room. Patient denies dark tarry stool. [facility] Medical History Borderline personality disorder ASHLEY (generalized anxiety disorder) PTSD (post-traumatic stress disorder) PUD (peptic ulcer disease) Severe depressive episode without psychotic symptoms Home Medications omeprazole [Prilosec] 40 mg PO DAILY 10/20/20 [History Last Taken Unknown] sertraline 100 mg PO QHS 10/20/20 [History Last Taken Unknown] sucralfate [Carafate] 1 g PO BID #14 tab 10/20/20 [Rx Last Taken Unknown] Allergy/AdvReac Type Severity Reaction Status Date / Time No Known Allergies Allergy Verified 10/20/20 14:12 Social History Smoking Status: Current every day smoker tobacco type: cigarettes ROS ROS ED Constitutional Constitutional ED: Denies chills or fever(s) Eyes Eyes: Denies change in vision ENT ENT ED: Denies sore throat Cardiovascular Cardiovascular: Denies chest pain Respiratory/Chest Respiratory/Chest: Denies cough or dyspnea Gastrointestinal Gastrointestinal: Reports abdominal pain, nausea and vomiting; Denies diarrhea Genitourinary Genitourinary ED: Denies dysuria Musculoskeletal Musculoskeletal: Denies back pain Integumentary Denies rash Neurologic Neurologic: Denies headache(s) or weakness Psychiatric Psychiatric: Denies anxiety or depression Endocrine Endocrinology: Denies polydipsia or polyuria Allergic/Immunologic Allergic/Immunologic ED: Denies urticaria EXAM Physical Exam Const Vital Signs: 10/20/20 14:08 10/20/20 16:15 Temperature 97.6 F L Temperature Source Temporal Pulse Rate 80 85 Respiratory Rate 14 15 Blood Pressure 130/83 H 119/73 Blood Pressure Mean 98 Pulse Ox 99 99 Oxygen Delivery Method Room Air Positive well nourished and well developed General Appearance ED: well developed HEENT Reports normocephalic and head/scalp atraumatic Eyes PERRL and EOMs intact bilaterally Neck supple Chest Wall inspection of chest normal and palpation of chest normal Resp normal respiratory effort and clear to auscultation bilaterally Cardio regular rate and regular rhythm GI Palpation: soft and tender epigastric (Minimal epigastric tenderness. No guarding or rebound.) Extremity normal to inspection Neuro oriented x3 and no sensory deficits noted Sensorium / Orientation: alert Motor Exam: strength 5/5 throughout Psych mental status grossly normal Skin no rashes or lesions noted MDM MDM MDM Narrative Medical decision making narrative: Labs are ordered. Lab Data Attestation: I reviewed the patient's lab results. Labs: Laboratory Results - last 24 hr 10/20/20 10/20/20 14:50 14:50 WBC 7.0 RBC 4.94 Hgb 13.8 Hct 41.3 MCV 83.6 MCH 27.9 MCHC 33.4 RDW Std Deviation 39.1 RDW Coeff of Rogerio 12.9 Plt Count 243 MPV 10.5 Immature Gran % (Auto) 0.100 Neut % (Auto) 55.1 Lymph % (Auto) 31.1 [place] % (Auto) 7.8 Eos % (Auto) 5.2 H Baso % (Auto) 0.7 Absolute Neuts (auto) 3.8 Absolute Lymphs (auto) 2.16 Nucleated RBC % 0 Sodium 139 Potassium 3.9 Chloride 110 H Carbon Dioxide 23.0 Anion Gap 6 BUN 11 Creatinine 0.87 Estim Creat Clear Calc 87.40 Est GFR (MDRD) Af Amer 100 Est GFR (MDRD) Non-Af 83 BUN/Creatinine Ratio 12.7 Glucose 99 Calcium 8.5 Total Bilirubin 0.50 Direct Bilirubin 0.09 AST 19 ALT 29 Alkaline Phosphatase 86 Total Protein 7.2 Albumin 3.8 Globulin 3.4 Lipase 150 Treatment and Re-Evaluation Comments:: Labs are reviewed and unremarkable. I will write the patient for Carafate to take in addition to her Prilosec. We will refer her to surgery for EGD. Discharge Plan Triage Chief Complaint: Abd Pain ED Provider: Spears,Farhana Dx/Rx/DC Orders Clinical Impression: Epigastric pain Instructions: ED PEPTIC ULCER vs GASTRITIS Prescriptions: New sucralfate [Carafate] 1 gram tablet 1 g PO BID Qty: 14 RF: 0 No Action sertraline 50 mg tablet 100 mg PO QHS RF: 0 omeprazole [Prilosec] 20 mg Capsule,Delayed Release(Dr/Ec) 40 mg PO DAILY RF: 0 Primary Care Provider: Kevin Blackburn Referrals: Amandeep Laughlin MD [STAFF PHYSICIAN] - As soon as possible Kevin Blackburn DO [Primary Care Provider] - Disposition Disposition: Home, Self Care Discharge Date/Time: 10/20/20 16:15
[2020-10-20 16:15] VITALS: BP 119/73; PULSE 85; RESP 15; O2SAT 99
== END 2020-10-20 16:15 | disposition home or self-care (01) ==
PROVIDERS: Emergency Provider Emergency Medicine; PCP Student in an Organized Health Care Education/Training Program
DX: R10.13 Epigastric pain (principal); K27.9 Peptic ulcer, site unspecified, unspecified as acute or chronic, without hemorrhage or perforation; F60.3 Borderline personality disorder; F41.1 Generalized anxiety disorder; F43.10 Post-traumatic stress disorder, unspecified; F32.9 Major depressive disorder, single episode, unspecified; F17.210 Nicotine dependence, cigarettes, uncomplicated; Z79.899 Other long term (current) drug therapy
CPT/HCPCS: 80048; 80076; 83690; 85025; 99283

== ENCOUNTER 2020-11-11 06:01 | Day surgery (SDC) | payer MEDICAID, SELFPAY ==
[2020-10-31 14:58] VITALS: BMI 32.9
[2020-11-11] VITALS (7 sets, daily range): BP systolic 103–121; BP diastolic 63–78; PULSE 71–97; RESP 16; TEMP 36.2–36.5; O2SAT 93–99; BMI 33.0
--- NOTE | 2020-11-11 06:36 | PCM.HP.BLA ---
History and Physical Date of Admission: 11/11/20 Date of Service: 10/31/20 cc: ~*Signed Intake Vital Signs 10/31/20 14:57 10/31/20 14:58 Height 5 ft 5 in Weight: 198 lb BMI 33.3 32.9 BP 120/79 Blood Pressure Location Rt brachial Position Sitting Respiration 16 Intake Visit Reasons: Abdominal Pain Chief Complaint: abd pain Allergies No Known Allergies Allergy (Verified 10/31/20 14:59) Medications sertraline 100 mg PO QHS 10/20/20 [History Confirmed 10/31/20] sucralfate [Carafate] 1 g PO BID #14 tab 10/20/20 [Rx Confirmed 10/31/20] pantoprazole 40 mg tablet,delayed release 40 mg PO DAILY #30 tab 10/31/20 [Rx Confirmed 10/31/20] sucralfate 1 gram tablet 1 g PO QACHS #56 tab 10/31/20 [Rx Confirmed 10/31/20] PFS Medical History Borderline personality disorder ASHLEY (generalized anxiety disorder) PTSD (post-traumatic stress disorder) PUD (peptic ulcer disease) Severe depressive episode without psychotic symptoms Social History (Updated 10/31/20 @ 14:58 by Mary Zacarias) Smoking Status: Current every day smoker tobacco type: cigarettes alcohol intake: current HPI HPI HPI: LUPE GAONA, is a 29 F who presents to the office today for mid abdominal pain nausea and vomiting. Patient states that since she was 15 and placed on Lexapro she had issues with abdominal pain. Patient has previously been on Prilosec, take it as needed and states that should be good for months in between. However the last 2 to 3 months and has been worse. Patient has taken up to 4 Prilosec's daily it looks like that 20 mg pills. Patient is never had a previous EGD. Patient states that with the Prozac her pain does seem to be better however she again is only taking this as needed as she did not know that it need to be taken daily to work effectively. Yesterday patient did have the epigastric pain nausea and vomiting. Patient has bowel movements ranges from every other day to several days. Patient states over the last 2 months her appetite has been a little decreased but she is still eating mostly normal-sized meals. Patient did go to the ER and got the Prilosec 20 mg p.o. daily as well as Carafate to be taken twice daily. ROS Cardio Cardiovascular: No chest pain Psych Psychiatric: Yes depression and anxiety Resp Respiratory: No shortness of breath, No sleep apnea, No cough, No COPD, No asthma, No emphysema and No wheezing Gastro Gastrointestinal: Yes abdominal pain, Yes nausea or vomiting, Yes diarrhea, Yes constipation, No blood in stool, Yes acid reflux, No hemorrhoids, Yes ulcers, No gallbladder problem and No black,tarry stools Exam Const General: cooperative, healthy appearing, comfortable and no acute distress Neck Neck: normal visual inspection Resp Effort & Inspection: normal respiratory effort Cardio Rate: regular rate GI Inspection: non-distended Palpation: soft, no guarding and tender in the epigastrum; with no rebound tenderness Skin General: no rashes or lesions noted Neuro General: patient oriented x3 Psych Affect: normal affect COVID (Procedure Consent) Procedure Criteria Procedure Criteria: Yes Elective The surgeon/proceduralist and patient have discussed in detail the risk of exposure to and/or potential harm posed by the COVID-19 virus with having a surgery/procedure at this time versus the risk of delaying the surgery/procedure. It is not possible to know either the risk of delaying the surgery or procedure or chance of getting an infection with perfect accuracy, but a joint decision was made between the patient and the surgeon/proceduralist to proceed at this time with the scheduled surgery/procedure as indicated on the consent form. Assessment and Plan Assessment and Plan (1) Epigastric pain: Status: Acute (2) GERD (gastroesophageal reflux disease): Status: Acute Plan: We will change patient's omeprazole to Protonix 40 mg p.o. daily also did educate patient that this medication needs to be taken daily would not encourage doubling up on doses as does not make it more effective. Also did send patient in more Carafate have her take it an hour before meals and at bedtime. Also schedule an EGD. I have discussed the above with the patient. I have offered the patient EGD for evaluation. I have explained the risks/benefits of the procedure and described the procedure. I have discussed the risks with the patient, including but not limited to: infection, bleeding, perforation of the GI tract requiring emergency surgery, inability to complete the procedure, injury to any internal organs, complications of anesthesia, etc. - the patient understands and agrees to proceed. I have answered all the patient's questions to the patient's satisfaction and the patient has no further questions. Greater than 50% of direct patient contact was spent in counseling or coordination of care. I spent 30 minutes counseling the patient on treatment for reflux/gastritis and coordinating care. Amanda Liang M.D. Pager: [phone] [facility] [address] [place] [address], [address] [place] [address] Office: [phone] Plan Details Other Medications: New: pantoprazole 40 mg PO DAILY 30 tabs 2RF sucralfate 1 hour take 1 hour before meals and at bedtime 1 g PO QACHS 56 tabs 0RF Discontinued: omeprazole Discontinued Reason: Order Changed 40 mg PO DAILY Coding Level of Care Code Off vis,new,level 3 Exam Problem Focused Diagnoses Epigastric pain R10.13 GERD (gastroesophageal reflux disease) K21.9 11/01/20 0831<Electronically signed by Amanda Liang MD>Date Amanda Liang MD
[2020-11-11] MEDS: Lactated Ringers 1,000 ML 100 ML IV (06:56)
--- NOTE | 2020-11-11 07:00 | EGD_PTH ---
PATIENT: LUPE GAONA LOC: EN U#:[id number] AGE/SX: 30/F ROOM: RE11/11/[address]: Dr. Amanda Liang MD : 1990 BED: DIS: 11/11/2020 SPEC #: [id number] RECD: 11/11/20 10:05 STATUS: LIAAN REArely #: [id number] DUSTIN: 11/11/20 07:[address]: Amanda Liang DEPT: SURGICAL PATHOLOGY RECD BY: Debbie Levy ENTERED: 11/11/20 12:45 SP TYPE: EGD BIOPSY OT DR: Dr. Kevin Blackburn, DO Tissues: A - Gastric mucous membrane B - Gastric mucous membrane Procedures: Surgery Specimen Level IV HEADER OPERATION: EGD ([facility]) PRE-OP DIAGNOSIS: Epigastric pain and GERD TISSUE SUBMITTED: A ? Antrum biopsy for H. pylori and path, B ? GE junction biopsy MICROSCOPIC DIAGNOSIS A. Antrum, biopsy: Mild gastritis. See microscopic description and comment. B. GE junction, biopsy: Fragments of squamous mucosa with mild chronic inflammation. SJ:sherif 11/12/2020 COMMENT A. The results of immunohistochemistry for Helicobacter pylori will be reported separately ([id number]). A minute fragment of blood clot with columnar epithelium and smooth muscle is also noted in the specimen. The significance is not clear. MICROSCOPIC DESCRIPTION Slides are reviewed. A. The specimen shows fragments of gastric mucosa with chronic inflammatory cell infiltrates in the lamina propria consisting of lymphocytes and plasma cells, consistent with mild chronic gastritis. GROSS DESCRIPTION A - Received in fixative is one container labeled with the patient's name and designated antrum biopsy. The specimen consists of one irregular fragment of light millan soft tissue that measures 0.3 x 0.3 x 0.1 cm. The specimen is totally submitted in one cassette. B - Received in fixative is one container labeled with the patient's name and designated GE junction. The specimen consists of two irregular fragments of light millan soft tissue that in aggregate measure 0.6 x 0.3 x 0.1 cm. The specimen is totally submitted in one cassette. / [place]:sherif 11/11/20 TC:3 CPT: 29134 x2
--- NOTE | 2020-11-11 07:00 | IMM_PTH ---
PATIENT: LUPE GAONA LOC: EN U#:[id number] AGE/SX: 30/F ROOM: RE11/11/[address]: Dr. Amanda Liang MD : 1990 BED: DIS: 11/11/2020 SPEC #: [id number] RECD: 11/11/20 12:09 STATUS: LIANA REQ #: [id number] DUSTIN: 11/11/20 07:[address]: Amanda Liang DEPT: IMMUNOHISTOCHEMISTRY RECD BY: Ernestine Khan ENTERED: 11/11/20 12:09 SP TYPE: IMMUNO OTHR DR: Dr. Kevin Blackburn, DO Tissues: A - Stomach, NOS Procedures: H Pylori (initial) PHYSICIAN & INSTITUTION [place] [id number] SPECIMEN INFORMATION: Tissue Source: A ? Antrum biopsy Clinical Info: Epigastric pain, GERD Specimen Number: [id number] CPT code: 86127 METHODOLOGY: Deparaffinized sections of prefer/formalin-fixed tissue or PAP/DQ stained slides are incubated with monoclonal/polyclonal antibodies/oligonucleotide probes. Localization is made via biotin free immunoperoxidase method. Appropriate controls are performed and reacted as expected. Results on target cell population are indicated in the following table: RESULTS: ANTIBODY / CLONE RESULT Block A H Pylori (polyclonal) negative These tests were developed and their performance characteristics determined by [facility]. They may not have been cleared or approved by the U.S. Food and Drug Administration. The FDA has determined that such clearance or approval is not necessary. INTERPRETATION: A. Antrum biopsy: Negative for Helicobacter pylori organisms. SJ:sherif 11/12/2020
[2020-11-11 07:09] LABS: Internal QC Validated? YES +Cl - CLEAR BKGD; Pregnancy, Serum, hCG Quali. NEGATIVE Negative
--- NOTE | 2020-11-11 07:41 | OP.CCLET_ITS ---
11/11/2020 Kevin Blackburn [address] [place] [address] Re : Upper GI endoscopy procedure for Lexi Valles Dear Dr. Blackburn This procedure was performed on Wednesday, November 11, 2020. My impressions and recommendations are as follows: Impressions : - Normal examined duodenum. - Small hiatal hernia. - Z-line variable, small healing superficial ulcer seen x 1, 35 cm from the incisors. Biopsied. - Erythematous mucosa in the antrum. Biopsied. Recommendations : - Await pathology results. - Discharge patient to home. - Resume previous diet. - Continue present medications. - Recommend smoking cessation, avoiding alcohol My findings are described in the full procedure note, which is enclosed. If I can be of further assistance, please feel free to contact me at Doctor phone number(s): , Work: . Sincerely, MD Amanda Hall MD 11/11/2020 7:40:02 AM This report has been signed electronically.
--- NOTE | 2020-11-11 07:41 | OP.EGD_ITS ---
Patient Name: Lexi Valles Procedure Date: 11/11/2020 6:50 AM Date of : 1990 Age: 30 Procedure: Upper GI endoscopy Indications: Epigastric abdominal pain, Abdominal pain in the left upper quadrant Providers: Amanda Liang MD Medicines: Monitored Anesthesia Care Patient Profile: This is a 30 year old female. Complications: No immediate complications. Procedure: Pre-Anesthesia Assessment: - Prior to the procedure, a History and Physical was performed, and patient medications and allergies were reviewed. The patient's tolerance of previous anesthesia was also reviewed. The risks and benefits of the procedure and the sedation options and risks were discussed with the patient. All questions were answered, and informed consent was obtained. Prior Anticoagulants: The patient has taken no previous anticoagulant or antiplatelet agents. ASA Grade Assessment: Per anesthesia. After reviewing the risks and benefits, the patient was deemed in satisfactory condition to undergo the procedure. After obtaining informed consent, the endoscope was passed under direct vision. Throughout the procedure, the patient's blood pressure, pulse, and oxygen saturations were monitored continuously. The gastroscope was introduced through the mouth, and advanced to the second part of duodenum. The upper GI endoscopy was accomplished without difficulty. The patient tolerated the procedure fairly well. Scope In: 7:16:36 AM Scope Out: 7:25:05 AM Total Procedure Duration Time 0 hours 8 minutes 29 seconds Findings: The examined duodenum was normal. A small hiatal hernia was present. The Z-line was variable, small healing superficial ulcer seen x 1 and was found 35 cm from the incisors. Biopsies were taken with a cold forceps for histology. Mildly erythematous mucosa without bleeding was found in the gastric antrum. Biopsies were taken with a cold forceps for histology. Biopsies were taken with a cold forceps for Helicobacter pylori cultures. The exam of the esophagus was otherwise normal. Impression: - Normal examined duodenum. - Small hiatal hernia. - Z-line variable, small healing superficial ulcer seen x 1, 35 cm from the incisors. Biopsied. - Erythematous mucosa in the antrum. Biopsied. Recommendation: - Await pathology results. - Discharge patient to home. - Resume previous diet. - Continue present medications. - Recommend smoking cessation, avoiding alcohol Procedure Code(s): --- Professional --- 83952, Esophagogastroduodenoscopy, flexible, transoral; with biopsy, single or multiple Diagnosis Code(s): --- Professional --- K44.9, Diaphragmatic hernia without obstruction or gangrene K22.8, Other specified diseases of esophagus K31.89, Other diseases of stomach and duodenum R10.13, Epigastric pain R10.12, Left upper quadrant pain CPT copyright 2017 [employer]. All rights reserved. The codes documented in this report are preliminary and upon head cager review may be revised to meet current compliance requirements. MD Amanda Hall MD 11/11/2020 7:40:02 AM This report has been signed electronically. Number of Addenda: 0 Note Initiated On: 11/11/2020 6:50 AM
== END 2020-11-11 08:38 | disposition home or self-care (01) ==
LOC: EN 06:03 → AC 06:03
PROVIDERS: Anesthesiology; PCP Student in an Organized Health Care Education/Training Program; Referring Provider Student in an Organized Health Care Education/Training Program; Visit Provider Surgery
PROC: 0DJ08ZZ Inspection of Upper Intestinal Tract, Via Natural or Artificial Opening Endoscopic (ICD-10-PCS; CPT 43235; principal; 2020-11-11 06:55)
DX: K29.50 Unspecified chronic gastritis without bleeding (principal); K44.9 Diaphragmatic hernia without obstruction or gangrene; K22.8 Other specified diseases of esophagus; K31.89 Other diseases of stomach and duodenum; K21.9 Gastro-esophageal reflux disease without esophagitis; R10.13 Epigastric pain; R10.12 Left upper quadrant pain; F17.210 Nicotine dependence, cigarettes, uncomplicated; F60.3 Borderline personality disorder; F41.1 Generalized anxiety disorder; F43.10 Post-traumatic stress disorder, unspecified
CPT/HCPCS: 43239; 84703; 88305; 88342; J7120; J2405